=== PATIENT | female | born 1975 | race Caucasian/White ===

== ENCOUNTER → 2016-12-09 | Outpatient (CLI) | payer BC ==
[~2016-12-09] MED LIST: DICL-201 PO; MULT-506 PO; OMEP40CA PO; PRLSR20 PO
== END | disposition home or self-care (01) ==
LOC: C.PAPS 11:26
PROVIDERS: ATTEND Obstetrics & Gynecology
DX: Z01.419 Encounter for gynecological examination (general) (routine) without abnormal findings (principal)

== ENCOUNTER → 2017-01-01 | Outpatient (CLI) | payer BC ==
[~2017-01-01] MED LIST changes: -PRLSR20 PO
--- NOTE | 2017-01-01 13:05 | MAMMOGRAPHY REPORT ---
BILATERAL DIGITAL DIAGNOSTIC MAMMOGRAM TOMOSYNTHESIS WITH CAD AND TARGETED RIGHT ULTRASOUND: 7 CLINICAL HISTORY: 1 year follow-up of a benign-appearing circumscribed subcentimeter mass in the ante rior right breast. Annual bilateral screening mammogram. TECHNIQUE: Bilateral breast tomosynthesis in addition to standard 2D mammography was performed. Curre nt study was also evaluated with a Computer Aided Detection (CAD) system. COMPARISON: Comparison is made to exams dated: 07/03/2016 ultrasound, 07/03/2016 mammogram, 6 ultrasound, 01/30/2016 mammogram, and 01/19/2016 mammogram - [facility]. BREAST COMPOSITION: The tissue of both breasts is almost entirely fatty. FINDINGS: There is an oval circumscribed low density mass in the anterior retroareolar right breast m easuring 7.7 x 5.3 x 3.3 mm mammographically, previously 7.9 x 4.9 x 5.7 mm. No new suspicious mass, architectural distortion or suspicious calcifications are identified bilaterally. There are scatter ed benign round and rim calcifications in the breasts. Repeat targeted ultrasound was performed in the 12:00 periareolar right breast in the location of the previously observed benign-appearing isoechoic circumscribed mass. However, a mass is not currently seen in this location. IMPRESSION: ACR-BI-RADS CATEGORY 3: PROBABLY BENIGN, TARGETED ULTRASOUND ACR-BI-RADS CATEGORY 3: PRO BABLY BENIGN Stable bilateral mammograms, including stable appearance of a benign-appearing low-density oval circu mscribed mass in the anterior retroareolar right breast. Although this mass is not currently identif ied on ultrasound to confirm sonographic stability, given the mammographic stability for at least one year this most likely benign. Another 12 month follow-up bilateral diagnostic mammogram and possibl e repeat ultrasound is recommended to ensure at least 2 years of stability to confirm benignity. These results and recommendations were discussed with the patient at the time of the exam. Approximately 10% of breast cancers are not detected with mammography. A negative mammographic report should not delay biopsy if a clinically suggestive mass is present. Jeannie Kaplan M.D. ay/:01/01/2017 08:40:28 Test Driver: Lexie WARREN)(Eileen), [facility] letter sent: Follow Up Recommended 3 BI-RADS Code: ACR-BI-RADS Category 3: Probably Benign Ultrasound BI-RADS: ACR-BI-RADS Category 3: Pr obably Benign
== END | disposition home or self-care (01) ==
LOC: C.MAMM 08:08
PROVIDERS: ATTEND Obstetrics & Gynecology
DX: N63 Unspecified lump in breast (principal)

== ENCOUNTER → 2017-01-31 | Outpatient (CLI) | payer BC | END | disposition home or self-care (01) | LOC: C.LAB1850 14:24 | PROVIDERS: ATTEND Obstetrics & Gynecology | DX: Z12.73 Encounter for screening for malignant neoplasm of ovary (principal) ==

== ENCOUNTER → 2017-05-01 | Day surgery (SDC) | payer BC ==
[2017-04-23 08:02] VITALS: Ht 157.5 cm; Wt 127.3 kg
[~2017-05-01] VITALS: Ht 157.5 cm; Wt 127.3 kg
[~2017-05-01] MED LIST changes: -DICL-201 PO; +LIDOCAINE HCL 2% 2 ML VIAL (20MG/ML) ONE; -MULT-506 PO; -OMEP40CA PO; +ONDANSETRON INJ 2 MG/ML 2 ML VIAL IV PRN; +PRLSR20 PO; +PROPOFOL IV EMULSION 10 MG/ML 20 ML VIAL IV ONE
--- NOTE | 2017-05-01 09:54 | Endo History and Physical ---
History & Physical Date of Service: May 01, 2017. Chief Complaint: History of reflux and possible Mclean's esophagus Referring Physician: History of Present Illness 41-year-old female with a history of gastroesophageal reflux well-controlled on current medications. Prior biopsies from the distal esophagus several years ago were suspicious for intestinal metaplasia. The patient presents for follow- up screening today. Past Medical History Gastrointestinal Disorder, Reflux, Blood Dyscrasias, Gynecological Problems Past Surgical History Hx Cardiac Surgery: No Hx Internal Defibrillator: No Hx Pacemaker: No Hx Abdominal Surgery: Yes (ANILA, X 2) Hx of Implantable Prosthesis: No Hx Post-Op Nausea and Vomiting: No Hx Cancer Surgery: No Hx Thoracic Surgery: No Hx Orthopedic: No Hx Urinary Tract Surgery: No Family History Polyp Social History Smoking Status: Never Smoker Hx Substance Use: No Hx Alcohol Use: No Allergies Coded Allergies: Sulfa Antibiotics (Verified Allergy, Unknown, HIVES, ITCHING, HEART RACES , 04/23/17) Penicillins (Verified Adverse Reaction, Mild, SEVERE HEADACHE AND FEVER, 04/23/17) Current Medications Reported Home Medications Medications Dose Route/Sig Max Daily Dose Days Date Category Prilosec (Omeprazole) 20 Mg Capcr 20 Mg PO QAM 04/23/17 Reported Vital Signs Weight (Kilograms): 127.27 Height (Feet): 5 Height (Inches): 2 Date Time Temp Pulse Resp B/P (MAP) Pulse Ox O2 Delivery O2 Flow Rate FiO2 05/01/17 09:45 36.6 85 20 146/90 (108) 100 Room Air Physical Exam General Appearance: no apparent distress Respiratory/Chest: Auscultation: breath sounds normal Cardiovascular: Heart Auscultation: RRR Abdomen: Inspection & Palpation: soft Assessment and Plan Patient with a history of reflux and possible Mclean's esophagus. We are planning to do a upper endoscopy for reassessment of her distal esophagus to determine if she has Mclean's. We've discussed the risks to include bleeding, infection, perforation and pain.
--- NOTE | 2017-05-01 10:26 | Discharge Instructions ---
Endoscopy Patient Instructions Date / Procedure(s) Performed May 01, 2017. EGD Allergy Information Coded Allergies: Sulfa Antibiotics (Verified Allergy, Unknown, HIVES, ITCHING, HEART RACES , 04/23/17) Penicillins (Verified Adverse Reaction, Mild, SEVERE HEADACHE AND FEVER, 04/23/17) Discharge Date / Findings May 01, 2017. Small Hiatal hernia Irregular gastroesophageal junction Medication Instructions Reported Home Medications Medications Dose Route/Sig Max Daily Dose Days Date Category Prilosec (Omeprazole) 20 Mg Capcr 20 Mg PO QAM 04/23/17 Reported Provider Instructions Activity Restrictions - No exercising or heavy lifting for 24 hours. - Do not drink alcohol the day of the procedure. - Do not drive a car or operate machinery until the day after the procedure. - Do not make any important decisions or sign important papers in 24 hours after the procedure. Following Day: - Return to full activity which may include returning to work/school. Diet Start your diet with liquids and light foods (jello, soup, juice, toast). Then eat your usual diet if not nauseated. Treatment For Common After Affects For mild abdominal pain, bloating, or excessive gas: - Rest - Eat lightly - Lie on right side Follow-Up Information Follow-up with Dr Lima as scheduled If pathology shows Barretts Esophagus will repeat EGD in 3 years Anesthesia Information What You Should Know You have had a procedure that required some medicine to reduce anxiety and discomfort. This treatment is called moderate sedation. After receiving the treatment, you may be sleepy, but you will be able to breathe on your own. The effects of the treatment may last for several hours. Follow these instructions along with Activity/Diet recommendations noted above: * Do NOT do anything where dizziness or clumsiness would be dangerous. * Rest quietly at home today, then you can be up and about tomorrow. * Have a responsible person stay with you the rest of today. * You may have had an I.V. today. If so, you may take the dressing off later today. Recommendations Call your doctor if: * Trouble breathing * Continuous vomiting for more than 24 hours * Temperature above 101 degrees * Severe abdominal pain or bloating * Pain not relieved by pain medicine ordered * There is increased drainage or redness from any incision * A large amount of rectal bleeding greater than 2-3 tablespoons. (If you had a polyp/s removed or have hemorrhoids, a small amount of blood - from the rectum is to be expected.) * You have any unanswered questions or concerns. IN THE EVENT OF A SERIOUS EMERGENCY, GO TO THE NEAREST EMERGENCY ROOM Your discharge instructions were prepared by provider Isaías Meek. Patient Instructions Signature Page Aiyana Palacios Patient (or Guardian) Signature/Date: I have read and understand the instructions given to me by my caregivers. Caregiver/RN/Doctor Signature/Date: The above-named patient and/or guardian has received patient instructions on this date. + Original Patient Signature Page (only) stays with chart. Please make copy for patient.
--- NOTE | 2017-05-01 10:33 | GI REPORT ---
Procedure Date: 05/01/2017 10:08 AM Procedure: Upper GI endoscopy Indications: Heartburn, Suspected Mclean's esophagus Medicines: Monitored Anesthesia Care Complications: No immediate complications. Estimated blood loss: Minimal. Estimated Blood Loss: Estimated blood loss was minimal. Procedure: Pre-Anesthesia Assessment: - Prior to the procedure, a History and Physical was performed, and patient medications, allergies and sensitivities were reviewed. The patient's tolerance of previous anesthesia was reviewed. - The risks and benefits of the procedure and the sedation options and risks were discussed with the patient. All questions were answered and informed consent was obtained. - Patient identification and proposed procedure were verified prior to the procedure by the physician, the nurse and the securities dealer. The procedure was verified in the procedure room. - Pre-procedure physical examination revealed no contraindications to sedation. - ASA Grade Assessment: II - A patient with mild systemic disease. - After reviewing the risks and benefits, the patient was deemed in satisfactory condition to undergo the procedure. - The anesthesia plan was to use monitored anesthesia care (MAC). - Immediately prior to administration of medications, the patient was re-assessed for adequacy to receive sedatives. - The heart rate, respiratory rate, oxygen saturations, blood pressure, adequacy of pulmonary ventilation, and response to care were monitored throughout the procedure. - The physical status of the patient was re-assessed after the procedure. After obtaining informed consent, the endoscope was passed under direct vision. Throughout the procedure, the patient's blood pressure, pulse, and oxygen saturations were monitored continuously. The scope was introduced through the mouth, and advanced to the third part of duodenum. The upper GI endoscopy was accomplished without difficulty. The patient tolerated the procedure well. Findings: The examined esophagus was normal. The Z-line was irregular and was found 33 cm from the incisors. Biopsies were taken with a cold forceps for histology. Estimated blood loss was minimal. A medium-sized hiatus hernia was found. The proximal extent of the gastric folds (end of tubular esophagus) was 34 cm from the incisors. The hiatal narrowing was 36 cm from the incisors. The Z-line was 33 cm from the incisors. The entire examined stomach was normal. The examined duodenum was normal. Impression: - Z-line irregular, 33 cm from the incisors. Biopsied. - Medium-sized hiatus hernia. - Normal stomach. - Normal examined duodenum. Recommendation: - Discharge patient to home (ambulatory). - Advance diet as tolerated today. - Await pathology results. - Repeat the upper endoscopy in 3 years for surveillance based on pathology results (if consistent Barretts Esophagus). Isaías Meek D.O. Isaías Meek, DO 05/01/2017 10:32:40 AM This report has been signed electronically. Note Initiated On: 05/01/2017 10:08 AM I attest to the content of the Intraoperative Record and orders documented therein, exceptions below
[2017-05-01 10:53] VITALS: BP 123/82; PULSE 63; O2SAT 98
--- NOTE | 2017-05-01 12:30 | Anesthesiology Progress Note ---
Anesthesia Post Op Note Date & Time May 01, 2017 at 12:30 Vital Signs Pain Intensity: 0 Vital Signs Past 12 Hours Date Time Temp Pulse Resp B/P (MAP) Pulse Ox O2 Delivery O2 Flow Rate FiO2 05/01/17 10:53 63 20 123/82 (96) 98 Room Air 05/01/17 10:39 70 18 126/64 (84) 96 Room Air 05/01/17 10:25 87 16 107/66 (80) 95 Room Air 05/01/17 09:45 36.6 85 20 146/90 (108) 100 Room Air Notes Mental Status: alert / awake / arousable, participated in evaluation Pt Amnestic to Procedure: Yes Nausea / Vomiting: adequately controlled Pain: adequately controlled Airway Patency, RR, SpO2: stable & adequate BP & HR: stable & adequate Hydration State: stable & adequate Anesthetic Complications: no major complications apparent
== END | disposition home or self-care (01) ==
LOC: C.GI 09:19
PROVIDERS: ATTEND Internal Medicine Gastroenterology
DX: R12 Heartburn (principal); K22.8 Other specified diseases of esophagus; K44.9 Diaphragmatic hernia without obstruction or gangrene; K21.9 Gastro-esophageal reflux disease without esophagitis; E66.01 Morbid (severe) obesity due to excess calories; Z68.43 Body mass index [BMI] 50.0-59.9, adult; Z90.49 Acquired absence of other specified parts of digestive tract; Z88.2 Allergy status to sulfonamides; Z88.0 Allergy status to penicillin; Z83.71 Family history of colonic polyps

== ENCOUNTER 2023-08-02 20:34 | Inpatient (IN) ==
[2023-08-02] MEDS ORDERED: ONDANSETRON INJ 2 MG/ML 2 ML VIAL IV STA (20:51)
[2023-08-02] MEDS ORDERED: HYDROmorphone INJ 0.5 MG/0.5 ML SYR IV STA (20:51)
[2023-08-02] MEDS ORDERED: SODIUM CHLORIDE 0.9% 1,000 ML IV STA (20:51)
--- NOTE | 2023-08-02 21:01 | Emergency Department Note ---
Impression & Plan Choledocholithiasis, Hx of cholecystectomy ED Provider Note CHIEF COMPLAINT: Abdominal pain, vomiting HISTORY OF PRESENT ILLNESS: This 47-year-old female patient past medical history of GERD, Mclean's esophagus, morbid obesity, presents to the emergency department with complaints of gradual onset of epigastric abdominal pain today. Patient states it was radiating down towards the bilateral upper quadrants but now seems to be more localized in the right upper quadrant. She had her gallbladder out about 13 years ago, but she states it feels very similar. Patient states she had beef vegetable soup and a piece of cake this evening. She does not recall having anything greasy or spicy today. She denies fevers, diarrhea and blood in her emesis. REVIEW OF SYSTEMS: A review of systems was performed with positives and pertinent negatives listed in the history of present illness. 10 systems were reviewed and are otherwise negative. ALLERGIES: see below MEDICATIONS: see below PMH: see below SOCIAL HISTORY: see below DDx: Retained biliary stone, pancreatitis, gastric ulcer, bowel obstruction, diverticulitis, kidney stone COVID UTI/pyelonephritis among others PHYSICAL EXAM: Vital signs reviewed. General: Well-appearing 47-year-old female, in some discomfort. HEENT: No scleral icterus, PERRLA, neck supple. Moist mucous membranes. Cardiovascular: Regular rate and rhythm, no extra sounds. Pulmonary: Clear to auscultation bilaterally, normal work of breathing. Abdomen: Soft, obese, tender to the right upper quadrant, nondistended, positive bowel sounds. Musculoskeletal: Atraumatic, no peripheral edema. Neurologic: Patient awake alert and oriented x 3, speech is clear Skin: Warm, dry, no rash EMERGENCY DEPARTMENT COURSE/MDM: This patient was evaluated and appeared to be in some discomfort. IV access was obtained and laboratory work was drawn. The patient was medicated with IV Dilaudid and Zofran. Laboratory work reveals a slight leukocytosis and AST/ALT. I did discuss the case with Dr. Monae of gastroenterology. He states he will contact the service providers to perform this procedure. Patient was covered with 2 g of IV Mefoxin. She was informed of the findings and plan and agreed. Patient was feeling improved after the medications. Dr. Ruelas of the hospitalist service will evaluate the patient for admission and further management. MONITORING: An order for cardiac monitoring was placed and the patient is noted to be in a sinus tachycardia at 105 beats per minute. RADIOLOGY: CT imaging of the abdomen pelvis per radiology reveals a small stone in the distal common bile duct. DISPOSITION: admit Past Med/Surg History Medical History GERD (gastroesophageal reflux disease) Hx gestational diabetes Temporomandibular joint disorder NO LOCKING Irregular heart beat NO CARDS (ECHO DONE IN 2013 FOR PVCS- NO SIGNIFICANT ISSUES NOTED ON ECHO) History of COVID-19 04/10/21 (BODY ACHES AND FATIGUE, MILD COUGH, RUNNY NOSE) STILL HAVING HAIR LOSS Pelvic pain Barretts esophagus Menorrhagia Surgical History Family history of reaction to anesthesia FATHER>HARD TIME WAKING UP History of anesthesia reaction WHEN RECOVERING>BODY SHAKES ALL OVER History of esophagogastroduodenoscopy (EGD) History of colonoscopy S/P section X 2 Hx of cholecystectomy Status post tubal ligation Family History Grandfather (Paternal) Heart disease Grandmother (Paternal) Ovarian cancer Diabetes Father Colonic polyp Borderline diabetes Father Breast cancer Denies family history of Colorectal cancer Social History Smoking Status: Never smoker Second Hand Exposure: No; Do You Dip or Chew Tobacco: No; Hx Alcohol Use: Yes Alcohol type: wine Preferred Language: Djib[place]ian [id number] Analyst Required: No Beliefs That Will Affect Care: None Current Living Situation: Family Feels Safe at Home: Yes Assistive Devices: None Allergies Allergies Allergy/AdvReac Type Severity Reaction Status Date / Time Sulfa (Sulfonamide Allergy Severe HIVES, Verified 07/30/23 08:21 Antibiotics) ITCHING, HEART RACES Penicillins Allergy Intermediate SEVERE Verified 07/30/23 08:21 HEADACHE AND FEVER sulfamethoxazole Allergy Mild rash Verified 07/30/23 08:21 [From Bactrim] trimethoprim [From Bactrim] Allergy Mild rash Verified 07/30/23 08:21 amoxicillin AdvReac Intermediate Headache Verified 07/30/23 08:21 Home Meds Home Medications Medication Instructions Recorded Confirmed omeprazole 20 mg capsule,delayed 20 mg PO QAM 10/05/19 08/03/23 release multivitamin 1 tab PO QAM 06/13/21 08/03/23 multivitamin,min-ferrous fumarate 1 tab PO QAM 09/17/21 08/03/23 3.3 mg-folic 25 mcg-herb tablet (Hair, Skin and Nails Advanced) semaglutide (weight loss) 2.4 2.4 mg subcut WK weight loss 08/03/23 08/03/23 mg/0.75 mL subcutaneous pen injector (Lam) Previous Rx's Medication Instructions Recorded cyclobenzaprine 10 mg tablet 10 mg PO TID PRN muscle spasm #20 08/04/22 tabs nystatin 100,000 unit/gram topical 1 applic topical TID #30 grams 07/30/23 cream Results & Data (ED) Vital Signs Vital Signs - 24 hr 08/02/23 20:40 08/02/23 20:51 08/02/23 21:22 Temperature 36.4 C L Temperature Source Temporal Artery Scan Pulse Rate 105 H 86 Pulse Rate from SpO2 Sensor Respiratory Rate 18 Blood Pressure 160/105 H Blood Pressure Mean 123 Blood Pressure Position Sitting Pulse Oximetry 99 Oxygen Delivery Method Room Air Room Air Oxygen Flow Rate Sepsis Recent Fever Within 48 Hours No Sepsis New/Unexplained Change in Mental Status N/A Sepsis Action Taken by Nursing No Action Required 08/02/23 21:23 08/02/23 22:19 08/02/23 23:17 Temperature Temperature Source Pulse Rate 84 93 H 94 H Pulse Rate from SpO2 Sensor 89 97 H Respiratory Rate 20 18 18 Blood Pressure 152/81 H 114/61 Blood Pressure Mean 104 78 Blood Pressure Position Pulse Oximetry 94 98 96 Oxygen Delivery Method Room Air Nasal Cannula Oxygen Flow Rate 2 Sepsis Recent Fever Within 48 Hours Sepsis New/Unexplained Change in Mental Status Sepsis Action Taken by Nursing 08/03/23 00:00 Temperature Temperature Source Pulse Rate 73 Pulse Rate from SpO2 Sensor Respiratory Rate 16 Blood Pressure 116/69 Blood Pressure Mean 84 Blood Pressure Position Pulse Oximetry 100 Oxygen Delivery Method Oxygen Flow Rate Sepsis Recent Fever Within 48 Hours Sepsis New/Unexplained Change in Mental Status Sepsis Action Taken by Custodial Medications Current Medication List: was personally reviewed by me Laboratory Data Attestation: I reviewed the patient's lab results. 08/02/23 21:03 08/02/23 21:03 Lab Results 08/02/23 08/02/23 Range/Units 21:03 22:03 WBC 10.65 (4.8-10.8) K/ul RBC 4.77 (4.20-5.40) M/uL Hgb 14.3 (12.0-16.0) g/dl Hct 41.8 (37.0-47.0) % MCV 87.6 (80.0-100.0) fL MCH 30.0 (25.0-34.0) pg MCHC 34.2 (32.0-36.0) g/dL RDW Std Deviation 40.0 (36.4-46.3) fL RDW Coeff of Shonda 12.6 (11.5-14.5) % Plt Count 296 (130-400) K/uL MPV 9.2 L (9.4-12.4) fL Sodium 136 (136-145) mmol/L Potassium 3.6 (3.5-5.1) mmol/L Chloride 108 H (98-107) mmol/L Carbon Dioxide 24 (21-32) mmol/L Anion Gap 4 (3-11) BUN 11 (6-23) mg/dl Creatinine 0.47 L (0.6-1.2) mg/dl Est Cr Clr Drug Dosing 173.5 ml/min Est GFR ( Amer) 135.4 ml/min Est GFR (Non-Af Amer) 116.8 ml/min BUN/Creatinine Ratio 23.4 H (10-20) Glucose 115 H (70-99(Fasting)) mg/dl Calcium 8.8 (8.6-10.3) mg/dl Magnesium 1.9 (1.7-2.4) mg/dl Total Bilirubin 1.2 H (0.2-1.0) mg/dl AST 347 H (13-39) U/L ALT 313 H (7-52) U/L Alkaline Phosphatase 81 (34-104) U/L Total Protein 6.6 (6.0-8.3) gm/dl Albumin 4.1 (3.4-5.0) gm/dl Globulin 2.5 (2.5-4.0) gm/dl Albumin/Globulin Ratio 1.6 (0.9-2) Lipase 35 (11-82) U/L Urine Color Yellow Urine Appearance Slightly Cloudy (Clear) Urine pH 7.5 (4.5-7.5) Ur Specific [place] 1.020 (1.000-1.030) Urine Protein Negative (Negative) Urine Glucose (UA) Negative (Negative) Urine Ketones Negative (Negative) Urine Blood Trace-intact H (Negative) Urine Nitrite Negative (Negative) Urine Bilirubin Negative (Negative) Urine Urobilinogen Negative (Negative) Ur Leukocyte Esterase Negative (Negative) Urine RBC 0-4 (0-4) /hpf Urine WBC 0-5 (0-5) /hpf Ur Epithelial Cells 0-5 (0-5) /lpf Amorphous Sediment Present A (None Prsent) Urine Bacteria 1+ H (Negative) Administered Medications Sodium Chloride (Nss) 1,000 mls @ 75 mls/hr IV .[id number] ONE Stop: 08/03/23 13:02 Last Admin: 08/03/23 00:31 Dose: 75 mls/hr Documented By: MARILOU Discontinued Medications Hydromorphone HCl (Hydromorphone Inj 0.5 Mg/0.5 Ml Syr) 0.5 mg IV NOW STA Stop: 08/02/23 20:52 Last Admin: 08/02/23 21:04 Dose: 0.5 mg Documented By: MARILOU Sodium Chloride (Nss) 1,000 mls @ 999 mls/hr IV .Q1H1M STA Stop: 08/02/23 21:51 Last Infusion: 08/02/23 22:46 Dose: Infused Documented By: Admin: 08/02/23 21:04 Dose: 999 mls/hr Documented By: MARILOU Cefoxitin Sodium (Mefoxin) 2,000 mg in 60 mls @ 100 mls/hr IV NOW STA Stop: 08/02/23 23:56 Last Infusion: 08/03/23 00:15 Dose: Infused Documented By: Admin: 08/02/23 23:39 Dose: 100 mls/hr Documented By: MARILOU Ioversol (Optiray 320 500ml) 87 ml IV ONCE ONE Stop: 08/02/23 22:11 Last Admin: 08/02/23 22:10 Dose: 87 ml Documented By: GRACE Ondansetron HCl (Ondansetron Inj 2 Mg/Ml 2 Ml Vial) 4 mg IV NOW STA Stop: 08/02/23 20:52 Last Admin: 08/02/23 21:04 Dose: 4 mg Documented By: MARILOU Imaging Data Radiologist's Impression: Abdomen/Pelvis CT 08/02/23 20:51 Exam(s): CT ABDOMEN + PELVIS With Contrast IV Amt: 87 ml optiray 320 EXAM: CT Abdomen and Pelvis With Intravenous Contrast CLINICAL HISTORY: Reason for exam: RUQ pain s/p rasheed. TECHNIQUE: Axial computed tomography images of the abdomen and pelvis with intravenous contrast. CTDI is 28.14 mGy and DLP is 1316.89 mGy-cm. Automated exposure control was utilized for the study. A dose lowering technique was utilized adhering to the principles of ALARA. CONTRAST: Patient received 87 ml optiray 320 of IV contrast COMPARISON: None. FINDINGS: Lung bases: Unremarkable. No mass. No consolidation. ABDOMEN: Liver: Unremarkable. No mass. Gallbladder and bile ducts: Status post cholecystectomy with no intrahepatic biliary distention. There is a tiny punctate stone in the distal aspect of the common bile duct measuring 5 mm. The common bile duct and above this level measures approximately 7.6 mm. Pancreas: Unremarkable. No mass. No ductal dilation. Spleen: Unremarkable. No splenomegaly. Adrenals: Unremarkable. No mass. Kidneys and ureters: Unremarkable. No solid mass. No hydronephrosis. Stomach and bowel: Unremarkable. No obstruction. No mucosal thickening. PELVIS: Appendix: No findings to suggest acute appendicitis. Bladder: Unremarkable. No mass. Reproductive: Nonvisualized uterus consistent with prior hysterectomy. ABDOMEN and PELVIS: Intraperitoneal space: Unremarkable. No free air. No significant fluid collection. Bones/joints: Multilevel degenerative disease of the spine, more severe at L5-S1. No acute fracture or spondylolisthesis. Mild degenerative disease of bilateral hips and SI joints. No dislocation. Soft tissues: Small fat-containing infraumbilical hernia. Vasculature: Unremarkable. No abdominal aortic aneurysm. Lymph nodes: Unremarkable. No enlarged lymph nodes. IMPRESSION: 1. Status post cholecystectomy with tiny stone in the distal aspect of the common bile duct with mild extrahepatic biliary distention. If indicated, this can be further assessed with MRCP/ERCP. Remainder of abdominal viscera are unremarkable. 2. No acute appendicitis or bowel obstruction. Electronically signed by: Kathie Leos MD 08/02/23 23:18 PM Discharge Plan Visit Data Chief Complaint: Abdominal Pain Stated Complaint: ABD PAIN ED Provider: Gianna Perez Discharge Problem: Choledocholithiasis, Hx of cholecystectomy Forms Stand Alone Forms: My [facility] Prescriptions Prescriptions: No Action nystatin 100,000 unit/gram cream 1 applic topical TID Qty: 30 2RF Rx Instructions: use tid for 7-10 days to affected area omeprazole 20 mg capsule,delayed release(DR/EC) 20 mg PO QAM cyclobenzaprine 10 mg tablet 10 mg PO TID PRN (Reason: muscle spasm) Qty: 20 0RF Wegovy 2.4 mg/0.75 mL pen injector 2.4 mg SUBCUT WK Rx Instructions: SQ once a week. Pt takes every friday. multivitamin Tablet 1 tab PO QAM Hair, Skin and Nails Advanced 3.3 mg iron-25 mcg Tablet 1 tab PO QAM Referrals Referrals: Daniel Lima MD [Primary Care Provider] -
[2023-08-02 21:35] LABS: Hematocrit (blood only) 41.8 % (37.0-47.0); Hemoglobin 14.3 g/dl (12.0-16.0); Mean Corpuscular Hgb Conc 34.2 g/dL (32.0-36.0); Mean Corpuscular Volume 87.6 fL (80.0-100.0); Mean Platelet Volume 9.2 fL (9.4-12.4); Platelet Count 296 K/uL (130-400); RDW Coefficient of Variation 12.6 % (11.5-14.5); Red Blood Count 4.77 M/uL (4.20-5.40); White Blood Count 10.65 K/ul (4.8-10.8)
[2023-08-02 21:51] LABS: Albumin Globulin Ratio 1.6 (0.9-2); Albumin Level 4.1 gm/dl (3.4-5.0); BUN Creatinine Ratio 23.4 (10-20); Bilirubin,Total 1.2 mg/dl (0.2-1.0); Calcium 8.8 mg/dl (8.6-10.3); Creatinine Clr Calc Pharmacy 173.5 ml/min; Est GFR (African American) 135.4 ml/min; Est GFR (Non-African American) 116.8 ml/min; Globulin 2.5 gm/dl (2.5-4.0); Potassium 3.6 mmol/L (3.5-5.1); Total Protein 6.6 gm/dl (6.0-8.3)
[2023-08-02] MEDS ORDERED: OPTIRAY 320 500ml IV ONE (22:10)
[2023-08-02 22:30] LABS: Appearance Urine Slightly Cloudy (Clear); Bilirubin Urine Negative (Negative); Blood Urine Trace-intact (Negative); Color Urine Yellow; Glucose Urine UA Negative (Negative); Ketones Urine Negative (Negative); Leukocyte Esterase Urine Negative (Negative); Nitrite Urine Negative (Negative); Protein Urine Negative (Negative); Urobilinogen Urine Negative (Negative); pH Urine 7.5 (4.5-7.5)
[2023-08-02] MEDS ORDERED: HYDROmorphone INJ 0.5 MG/0.5 ML SYR IV PRN (22:49)
[2023-08-02 22:50] LABS: Amorphous Sediment Urine Present (None Prsent); Bacteria Urine 1+ (Negative); Epithelial Cell Urine 0-5 /lpf (0-5); RBC Urine 0-4 /hpf (0-4); WBC Urine 0-5 /hpf (0-5)
--- NOTE | 2023-08-02 23:19 | CT Scan Report ---
Exam(s): CT ABDOMEN + PELVIS With Contrast IV Amt: 87 ml optiray 320 EXAM: CT Abdomen and Pelvis With Intravenous Contrast CLINICAL HISTORY: Reason for exam: RUQ pain s/p rasheed. TECHNIQUE: Axial computed tomography images of the abdomen and pelvis with intravenous contrast. CTDI is 28.14 mGy and DLP is 1316.89 mGy-cm. Automated exposure control was utilized for the study. A dose lowering technique was utilized adhering to the principles of ALARA. CONTRAST: Patient received 87 ml optiray 320 of IV contrast COMPARISON: None. FINDINGS: Lung bases: Unremarkable. No mass. No consolidation. ABDOMEN: Liver: Unremarkable. No mass. Gallbladder and bile ducts: Status post cholecystectomy with no intrahepatic biliary distention. There is a tiny punctate stone in the distal aspect of the common bile duct measuring 5 mm. The common bile duct and above this level measures approximately 7.6 mm. Pancreas: Unremarkable. No mass. No ductal dilation. Spleen: Unremarkable. No splenomegaly. Adrenals: Unremarkable. No mass. Kidneys and ureters: Unremarkable. No solid mass. No hydronephrosis. Stomach and bowel: Unremarkable. No obstruction. No mucosal thickening. PELVIS: Appendix: No findings to suggest acute appendicitis. Bladder: Unremarkable. No mass. Reproductive: Nonvisualized uterus consistent with prior hysterectomy. ABDOMEN and PELVIS: Intraperitoneal space: Unremarkable. No free air. No significant fluid collection. Bones/joints: Multilevel degenerative disease of the spine, more severe at L5-S1. No acute fracture or spondylolisthesis. Mild degenerative disease of bilateral hips and SI joints. No dislocation. Soft tissues: Small fat-containing infraumbilical hernia. Vasculature: Unremarkable. No abdominal aortic aneurysm. Lymph nodes: Unremarkable. No enlarged lymph nodes. IMPRESSION: 1. Status post cholecystectomy with tiny stone in the distal aspect of the common bile duct with mild extrahepatic biliary distention. If indicated, this can be further assessed with MRCP/ERCP. Remainder of abdominal viscera are unremarkable. 2. No acute appendicitis or bowel obstruction. Electronically signed by: Kathie Leos MD 08/02/23 23:18 PM
[2023-08-02] MEDS ORDERED: cefOXitin 2,000 MG/60 ML BAG IV STA (23:21)
[2023-08-02] MEDS ORDERED: SODIUM CHLORIDE 0.9% 1,000 ML IV ONE (23:43)
[2023-08-03 00:01] LABS: Magnesium 1.9 mg/dl (1.7-2.4)
--- NOTE | 2023-08-03 00:25 | History & Physical Report ---
Date of Service August 03, 2023 Assessment & Plan (1) Choledocholithiasis: Plan: Causing biliary tract obstruction No sepsis for now Situational hypertension, BP currently improved Hyperglycemia, rule out DM, history of GDM History GERD on PPI Skinfold dermatitis responding to outpatient topical nystatin Rx from bulk gas specialist [facility] Bowel rest Analgesia GI consult re: biliary tract obstruction/choledocholithiasis ER provider already in touch with Dr. Monae. N.p.o. in anticipation of procedure in a.m. Check hemoglobin A1c DVT prophylaxis. SCDs Re: Possible procedure Full code Patient requesting updates providers. Mr. Misael Palacios, contact #[phone]. Text document was generated using [employer] voice recognition software. It may contain grammatical or spelling errors. Kindly contact undersigned for clarification of any documentation item in question. History of Present Illness Chief Complaint: Abdominal pain Primary Care Provider: Daniel Lima MD History obtained from patient, family, and records. Medical history significant for GERD, NAFLD, gestational DM, PCOS, morbid obesity on [place]. Patient experience achy epigastric pain after lunchtime today which progressively worsened. Later followed by bilious emesis. No constipation/diarrhea. No fever, no chills, no chest pain, no SOB. No headache. SBP 200s upon arrival at the ER. SBP currently 110s. IV cefoxitin administered at the ER. Medical History as above Topical nystatin recently prescribed by bulk gas specialist for abdominal skin fold dermatitis following recent outpatient visit Surgical History : BTL, hysterectomy, section, cholecystectomy Family History : Breast cancer, DM, ovarian cancer Personal/Social history : Non-smoker, rare EtOH intake, [employer] employee Allergies Allergy/AdvReac Type Severity Reaction Status Date / Time Sulfa (Sulfonamide Allergy Severe HIVES, Verified 07/30/23 08:21 Antibiotics) ITCHING, HEART RACES Penicillins Allergy Intermediate SEVERE Verified 07/30/23 08:21 HEADACHE AND FEVER sulfamethoxazole Allergy Mild rash Verified 07/30/23 08:21 [From Bactrim] trimethoprim [From Bactrim] Allergy Mild rash Verified 07/30/23 08:21 amoxicillin AdvReac Intermediate Headache Verified 07/30/23 08:21 Home Medications Medication Instructions Recorded Confirmed Type omeprazole 20 mg capsule,delayed 20 mg PO QAM 10/05/19 08/03/23 History release multivitamin 1 tab PO QAM 06/13/21 08/03/23 History multivitamin,min-ferrous fumarate 1 tab PO QAM 09/17/21 08/03/23 History 3.3 mg-folic 25 mcg-herb tablet (Hair, Skin and Nails Advanced) cyclobenzaprine 10 mg tablet 10 mg PO TID PRN muscle spasm #20 08/04/22 08/03/23 Rx tabs nystatin 100,000 unit/gram topical 1 applic topical TID #30 grams 07/30/23 08/03/23 Rx cream semaglutide (weight loss) 2.4 2.4 mg subcut WK weight loss 08/03/23 08/03/23 History mg/0.75 mL subcutaneous pen injector ([employer]) Past Med/Surg History Medical History GERD (gastroesophageal reflux disease) Hx gestational diabetes Temporomandibular joint disorder NO LOCKING Irregular heart beat NO CARDS (ECHO DONE IN 2013 FOR PVCS- NO SIGNIFICANT ISSUES NOTED ON ECHO) History of COVID-19 04/10/21 (BODY ACHES AND FATIGUE, MILD COUGH, RUNNY NOSE) STILL HAVING HAIR LOSS Pelvic pain Barretts esophagus Menorrhagia Surgical History Family history of reaction to anesthesia FATHER>HARD TIME WAKING UP History of anesthesia reaction WHEN RECOVERING>BODY SHAKES ALL OVER History of esophagogastroduodenoscopy (EGD) History of colonoscopy S/P section X 2 Hx of cholecystectomy Status post tubal ligation Family History Grandfather (Paternal) Heart disease Grandmother (Paternal) Ovarian cancer Diabetes Father Colonic polyp Borderline diabetes Father Breast cancer Denies family history of Colorectal cancer Social History Smoking Status: Never smoker Second Hand Exposure: No; Do You Dip or Chew Tobacco: No; Hx Alcohol Use: No Hx Substance Use: No Preferred Language: Hungarian Cell Tender Required: No Beliefs That Will Affect Care: None Current Living Situation: Spouse Feels Safe at Home: Yes Safety Concerns: Feels Safe At This Time Assistive Devices: CPAP Review of Systems Review of Systems: As per HPI, all other systems reviewed and negative Physical Exam Physical Exam: GENERAL: Comfortable, morbidly obese, no respiratory distress SKIN: Normal color, warm HEENT: [place] palpebral conjunctivae, no ptosis, dry buccal mucosa NECK : Supple, short neck, no tenderness CHEST : Decreased breath sounds, no tenderness HEART : RRR, no obvious murmurs ABDOMEN: Some distention, minimal epigastric tenderness EXTREMITIES : Minimal LE swelling, no LE tenderness, no other conspicuous deformities noted NEUROLOGIC : Coherent, no facial asymmetry, no other gross focality Results & Data Results & Data Vital Signs (Past 12 Hours) Vital Signs Temp Pulse Resp BP Pulse Ox O2 Del Method O2 Flow Rate 08/03/23 00:00 73 16 116/69 100 08/02/23 23:17 94 H 18 114/61 96 08/02/23 22:19 93 H 18 152/81 H 98 Nasal Cannula 2 08/02/23 21:23 84 20 94 Room Air 08/02/23 21:22 86 08/02/23 20:51 Room Air 08/02/23 20:40 36.4 C L 105 H 18 160/105 H 99 Room Air Laboratory Results Laboratory Results WBC 10.65 K/ul (4.8-10.8) 08/02/23 21:03 RBC 4.77 M/uL (4.20-5.40) 08/02/23 21:03 Hgb 14.3 g/dl (12.0-16.0) 08/02/23 21:03 Hct 41.8 % (37.0-47.0) 08/02/23 21:03 MCV 87.6 fL (80.0-100.0) 08/02/23 21:03 MCH 30.0 pg (25.0-34.0) 08/02/23 21:03 MCHC 34.2 g/dL (32.0-36.0) 08/02/23 21:03 RDW Std Deviation 40.0 fL (36.4-46.3) 08/02/23 21:03 RDW Coeff of Shonda 12.6 % (11.5-14.5) 08/02/23 21:03 Plt Count 296 K/uL (130-400) 08/02/23 21:03 MPV 9.2 fL (9.4-12.4) L 01/27/24 21:03 Sodium 136 mmol/L (136-145) 08/02/23 21:03 Potassium 3.6 mmol/L (3.5-5.1) 08/02/23 21:03 Chloride 108 mmol/L (98-107) H 08/02/23 21:03 Carbon Dioxide 24 mmol/L (21-32) 08/02/23 21:03 Anion Gap 4 (3-11) 08/02/23 21:03 BUN 11 mg/dl (6-23) 08/02/23 21:03 Creatinine 0.47 mg/dl (0.6-1.2) L 08/02/23 21:03 Est Cr Clr Drug Dosing 173.5 ml/min 08/02/23 21:03 Est GFR ( Amer) 135.4 ml/min 08/02/23 21:03 Est GFR (Non-Af Amer) 116.8 ml/min 08/02/23 21:03 BUN/Creatinine Ratio 23.4 (10-20) H 08/02/23 21:03 Glucose 115 mg/dl (70-99(Fasting)) H 08/02/23 21:03 Calcium 8.8 mg/dl (8.6-10.3) 08/02/23 21:03 Magnesium 1.9 mg/dl (1.7-2.4) 08/02/23 21:03 Total Bilirubin 1.2 mg/dl (0.2-1.0) H 08/02/23 21:03 AST 347 U/L (13-39) H 08/02/23 21:03 ALT 313 U/L (7-52) H 08/02/23 21:03 Alkaline Phosphatase 81 U/L (34-104) 08/02/23 21:03 Total Protein 6.6 gm/dl (6.0-8.3) 08/02/23 21:03 Albumin 4.1 gm/dl (3.4-5.0) 08/02/23 21:03 Globulin 2.5 gm/dl (2.5-4.0) 08/02/23 21:03 Albumin/Globulin Ratio 1.6 (0.9-2) 08/02/23 21:03 Lipase 35 U/L (11-82) 08/02/23 21:03 Urine Color Yellow 08/02/23 22:03 Urine Appearance Slightly Cloudy (Clear) 08/02/23 22:03 Urine pH 7.5 (4.5-7.5) 08/02/23 22:03 Ur Specific [place] 1.020 (1.000-1.030) 08/02/23 22:03 Urine Protein Negative (Negative) 08/02/23 22:03 Urine Glucose (UA) Negative (Negative) 08/02/23 22:03 Urine Ketones Negative (Negative) 08/02/23 22:03 Urine Blood Trace-intact (Negative) H 08/02/23 22:03 Urine Nitrite Negative (Negative) 08/02/23 22: Urine Bilirubin Negative (Negative) 08/02/23 22: Urine Urobilinogen Negative (Negative) 08/02/23 22:03 Ur Leukocyte Esterase Negative (Negative) 08/02/23 22:03 Urine RBC 0-4 /hpf (0-4) 08/02/23 22:03 Urine WBC 0-5 /hpf (0-5) 08/02/23 22:03 Ur Epithelial Cells 0-5 /lpf (0-5) 08/02/23 22:03 Amorphous Sediment Present (None Prsent) A 08/02/23 22: Urine Bacteria 1+ (Negative) H 08/02/23 22:03 Impressions Abdomen/Pelvis CT 08/02/23 20:51 Exam(s): CT ABDOMEN + PELVIS With Contrast IV Amt: 87 ml optiray 320 EXAM: CT Abdomen and Pelvis With Intravenous Contrast CLINICAL HISTORY: Reason for exam: RUQ pain s/p rasheed. TECHNIQUE: Axial computed tomography images of the abdomen and pelvis with intravenous contrast. CTDI is 28.14 mGy and DLP is 1316.89 mGy-cm. Automated exposure control was utilized for the study. A dose lowering technique was utilized adhering to the principles of ALARA. CONTRAST: Patient received 87 ml optiray 320 of IV contrast COMPARISON: None. FINDINGS: Lung bases: Unremarkable. No mass. No consolidation. ABDOMEN: Liver: Unremarkable. No mass. Gallbladder and bile ducts: Status post cholecystectomy with no intrahepatic biliary distention. There is a tiny punctate stone in the distal aspect of the common bile duct measuring 5 mm. The common bile duct and above this level measures approximately 7.6 mm. Pancreas: Unremarkable. No mass. No ductal dilation. Spleen: Unremarkable. No splenomegaly. Adrenals: Unremarkable. No mass. Kidneys and ureters: Unremarkable. No solid mass. No hydronephrosis. Stomach and bowel: Unremarkable. No obstruction. No mucosal thickening. PELVIS: Appendix: No findings to suggest acute appendicitis. Bladder: Unremarkable. No mass. Reproductive: Nonvisualized uterus consistent with prior hysterectomy. ABDOMEN and PELVIS: Intraperitoneal space: Unremarkable. No free air. No significant fluid collection. Bones/joints: Multilevel degenerative disease of the spine, more severe at L5-S1. No acute fracture or spondylolisthesis. Mild degenerative disease of bilateral hips and SI joints. No dislocation. Soft tissues: Small fat-containing infraumbilical hernia. Vasculature: Unremarkable. No abdominal aortic aneurysm. Lymph nodes: Unremarkable. No enlarged lymph nodes. IMPRESSION: 1. Status post cholecystectomy with tiny stone in the distal aspect of the common bile duct with mild extrahepatic biliary distention. If indicated, this can be further assessed with MRCP/ERCP. Remainder of abdominal viscera are unremarkable. 2. No acute appendicitis or bowel obstruction. Electronically signed by: Kathie Leos MD 08/02/23 23:18 PM Diagnostic Findings EKG as per my interpretation : Rate 100, NSR, normal axis, no ischemia
[2023-08-03] MEDS ORDERED: LORazepam 0.5 MG TAB PO PRN (00:28)
[2023-08-03] MEDS ORDERED: MoRPHine SULFATE 4 MG/ML 1 ML CARP\\VIAL IV PRN (00:28)
[2023-08-03] MEDS ORDERED: CYCLOBENZAPRINE HCL 10 MG TAB PO PRN (01:52)
[2023-08-03] MEDS: PROMETHAZINE HCL 12.5 MG in SODIUM CHLORIDE 0.9% 50 ML IV PRN (02:15)
[2023-08-03] MEDS: oxyCODONE HCL IR 5 MG TAB (IMMEDIATE RELEASE) PO PRN ×4 (02:15→21:01)
[2023-08-03 06:57] LABS: Basophils # (auto) 0.07 K/uL (0.00-0.20); Basophils % (auto) 0.7 %; Eosinophils # (auto) 0.11 K/uL (0.00-0.50); Eosinophils % (auto) 1.1 %; Hematocrit (blood only) 39.5 % (37.0-47.0); Hemoglobin 13.3 g/dl (12.0-16.0); Immature Granulocytes # (auto) 0.04 K/uL (0.01-0.20); Immature Granulocytes % (auto) 0.4 %; Lymphocytes # (auto) 3.27 K/uL (1.20-3.40); Mean Corpuscular Hgb Conc 33.7 g/dL (32.0-36.0); Mean Platelet Volume 9.6 fL (9.4-12.4); Monocytes # (auto) 0.57 K/uL (0.11-0.59); Monocytes % (auto) 5.9 %; Neutrophils # (auto) 5.57 K/uL (1.40-6.50); Neutrophils % (auto) 57.9 %; Platelet Count 291 K/uL (130-400); RDW Coefficient of Variation 12.8 % (11.5-14.5); RDW Standard Deviation 41.9 fL (36.4-46.3); Red Blood Count 4.44 M/uL (4.20-5.40); White Blood Count 9.63 K/ul (4.8-10.8)
[2023-08-03 07:36] LABS: Albumin Globulin Ratio 1.6 (0.9-2); Albumin Level 3.4 gm/dl (3.4-5.0); BUN Creatinine Ratio 19.6 (10-20); Bilirubin,Total 0.9 mg/dl (0.2-1.0); Calcium 8.7 mg/dl (8.6-10.3); Creatinine Clr Calc Pharmacy 177.7 ml/min; Est GFR (African American) 136.3 ml/min; Est GFR (Non-African American) 117.6 ml/min; Globulin 2.1 gm/dl (2.5-4.0); Potassium 3.7 mmol/L (3.5-5.1); Total Protein 5.5 gm/dl (6.0-8.3)
[2023-08-03 07:38] LABS: Estimated Average Glucose 100 mg/dl; Hemoglobin A1C 5.1 % (4.5-5.6)
[2023-08-03] MEDS: NYSTATIN CR 15 GM TUBE EXT SCH ×3 (08:32→20:08)
[2023-08-03] MEDS: PANTOprazole 40 MG TAB PO SCH (08:32)
[2023-08-03] MEDS: MULTIVITAMIN TAB PO SCH (08:32)
[2023-08-03] MEDS: ACETAMINOPHEN 500 MG TAB PO PRN (08:41)
--- NOTE | 2023-08-03 10:09 | Electrocardiogram Report ---
Test Reason : Blood Pressure : / mmHG Vent. Rate : 099 BPM Atrial Rate : 099 BPM P-R Int : 162 ms QRS Dur : 088 ms QT Int : 366 ms P-R-T Axes : 037 025 028 degrees QTc Int : 469 ms Normal sinus rhythm Cannot rule out Anterior infarct , age undetermined Abnormal ECG When compared with ECG of 06-JUN-2021 14:51, Minimal criteria for Anterior infarct are now Present Confirmed by Leo Freitas ([id number]) on 08/03/2023 10:08:52 AM Referred By: REFERRED SELF Confirmed By:Leo Freitas
--- NOTE | 2023-08-03 11:52 | Communication Note ---
Date of Service: August 03, 2023 pt was seen in the AM. Resting comfortably, denied acute concerns. Asking when she would be seen by GI. On exam, abdomen tender in RUQ. Liver enzymes are generally improving today. Pain meds, continue NPO status, appreciate GI recs. For further information, please see the History and physical from the same date of service.
--- NOTE | 2023-08-03 15:47 | Gastrointestinal Consultation ---
Date of Consultation August 03, 2023 Assessment & Plan (1) Choledocholithiasis: Plan choledocholithiasis on imaging, likely cause of her abdominal pains. recs: NPO post midnight ERCP tomorrow with Dr. Maldonado for treatment supportive care, IVFs if febrile start abx and culture. Thank you for allowing me to participate in the care of this patient History of Present Illness Attending Physician: Kayla Light MD History of Present Illness 47 yo female here for evaluation. She developed epigastric pains yesterday, felt like a gallbladder attack, s/p ccy over 10 years ago. notes chills as well and vomiting what she ate. CT imaging here shows distal CBD stone, choledocholithiasis. no fevers or leukocytosis at this time. denies recent abx, nsaid use. bilirubin normal today. CBC, CMP reviewed. Allergies Allergy/AdvReac Type Severity Reaction Status Date / Time Sulfa (Sulfonamide Allergy Severe HIVES, Verified 07/30/23 08:21 Antibiotics) ITCHING, HEART RACES Penicillins Allergy Intermediate SEVERE Verified 07/30/23 08:21 HEADACHE AND FEVER sulfamethoxazole Allergy Mild rash Verified 07/30/23 08:21 [From Bactrim] trimethoprim [From Bactrim] Allergy Mild rash Verified 07/30/23 08:21 amoxicillin AdvReac Intermediate Headache Verified 07/30/23 08:21 Home Medications Medication Instructions Recorded Confirmed Type omeprazole 20 mg capsule,delayed 20 mg PO QAM 10/05/19 08/03/23 History release multivitamin 1 tab PO QAM 06/13/21 08/03/23 History multivitamin,min-ferrous fumarate 1 tab PO QAM 09/17/21 08/03/23 History 3.3 mg-folic 25 mcg-herb tablet (Hair, Skin and Nails Advanced) cyclobenzaprine 10 mg tablet 10 mg PO TID PRN muscle spasm #20 08/04/22 08/03/23 Rx tabs nystatin 100,000 unit/gram topical 1 applic topical TID #30 grams 07/30/23 08/03/23 Rx cream semaglutide (weight loss) 2.4 2.4 mg subcut WK weight loss 08/03/23 08/03/23 History mg/0.75 mL subcutaneous pen injector (Lam) Patient History Medical History GERD (gastroesophageal reflux disease) Hx gestational diabetes Temporomandibular joint disorder NO LOCKING Irregular heart beat NO CARDS (ECHO DONE IN 2013 FOR PVCS- NO SIGNIFICANT ISSUES NOTED ON ECHO) History of COVID-19 04/10/21 (BODY ACHES AND FATIGUE, MILD COUGH, RUNNY NOSE) STILL HAVING HAIR LOSS Pelvic pain Barretts esophagus Menorrhagia Surgical History Family history of reaction to anesthesia FATHER>HARD TIME WAKING UP History of anesthesia reaction WHEN RECOVERING>BODY SHAKES ALL OVER History of esophagogastroduodenoscopy (EGD) History of colonoscopy S/P section X 2 Hx of cholecystectomy Status post tubal ligation Family History Grandfather (Paternal) Heart disease Grandmother (Paternal) Ovarian cancer Diabetes Father Colonic polyp Borderline diabetes Father Breast cancer Denies family history of Colorectal cancer Social History Smoking Status: Never smoker Second Hand Exposure: No; Do You Dip or Chew Tobacco: No; Hx Alcohol Use: No Hx Substance Use: No Preferred Language: Chadian Systems Requirements Planner Required: No Beliefs That Will Affect Care: None Current Living Situation: Spouse Feels Safe at Home: Yes Safety Concerns: Feels Safe At This Time Assistive Devices: CPAP Review of Systems Constitutional: no fever, no chills and no weight loss Eyes: as per Subjective / HPI Ear, Nose, Mouth, Throat: as per Subjective / HPI Respiratory: no dyspnea and no dyspnea on exertion Cardiovascular: no chest pain and no palpitations Gastrointestinal: as per Subjective / HPI Musculoskeletal: no joint pain and no swelling Integumentary: no rash and no lesions Neurologic: no numbness and no paresthesia Psychiatric: no depression and no anxiety Endocrine: no fatigue Hematologic / Lymphatic: no easy bleeding and no easy bruising Physical Exam Constitutional: WD/WN, vitals as above Eyes: EOM intact bilaterally Neck: normal visual inspection Respiratory: normal respiratory effort, lungs clear to auscultation Cardiovascular: RRR, no murmur, no edema Gastrointestinal (Abdomen): Inspection/Auscultation: abdomen normal to inspection; abdomen not distended Percussion/Palpation: + abdomen tender (mild epigastric) and abdomen soft; no hepatosplenomegaly Musculoskeletal: Head/Neck/Chest: normocephalic and head atraumatic Extremities: no cyanosis Skin: no rashes, warm and dry Neurologic: moves all extremities Psychiatric: Orientation: alert and cooperative Affect: euthymic affect Results & Data Vital Signs (Past 12 Hours) Vital Signs Temp Pulse Resp BP Pulse Ox O2 Del Method O2 Flow Rate 08/03/23 15:26 36.4 C L 72 16 106/71 97 Room Air 08/03/23 07:46 36.4 C L 74 111/78 98 Nasal Cannula 1 PG Care Time/CCT Total # of Minutes Spent Total Time Spent with Patient: Total time spent is greater than 50% in coordination of care (as documented) at patient's floor/unit and/or counseling patient: Coding Level of Care Code 38600 IN/OBS CONSULT LVL 4,60M Diagnoses Choledocholithiasis K80.50
[2023-08-03] MEDS: cefTRIAXone SODIUM 2,000 MG in DEXTROSE 5 % MINI-B 50 ML IV SCH (19:23)
[2023-08-04 06:54] LABS: Basophils # (auto) 0.08 K/uL (0.00-0.20); Eosinophils # (auto) 0.19 K/uL (0.00-0.50); Eosinophils % (auto) 2.4 %; Hematocrit (blood only) 43.7 % (37.0-47.0); Hemoglobin 14.4 g/dl (12.0-16.0); Immature Granulocytes # (auto) 0.03 K/uL (0.01-0.20); Immature Granulocytes % (auto) 0.4 %; Lymphocytes # (auto) 2.57 K/uL (1.20-3.40); Lymphocytes % (auto) 32.9 %; Mean Corpuscular Hemoglobin 29.8 pg (25.0-34.0); Mean Corpuscular Volume 90.3 fL (80.0-100.0); Mean Platelet Volume 9.2 fL (9.4-12.4); Monocytes # (auto) 0.53 K/uL (0.11-0.59); Monocytes % (auto) 6.8 %; Neutrophils % (auto) 56.5 %; Platelet Count 282 K/uL (130-400); RDW Coefficient of Variation 12.6 % (11.5-14.5); RDW Standard Deviation 41.9 fL (36.4-46.3); Red Blood Count 4.84 M/uL (4.20-5.40)
[2023-08-04 07:09] LABS: Calcium 8.8 mg/dl (8.6-10.3); Creatinine Clr Calc Pharmacy 163.5 ml/min; Est GFR (African American) 132.6 ml/min; Est GFR (Non-African American) 114.5 ml/min; Potassium 3.7 mmol/L (3.5-5.1)
[2023-08-04] MEDS: PANTOprazole 40 MG TAB PO SCH (07:33)
[2023-08-04] MEDS: NYSTATIN CR 15 GM TUBE EXT SCH ×3 (07:33→19:24)
[2023-08-04] MEDS: MULTIVITAMIN TAB PO SCH (07:33)
[2023-08-04 07:56] LABS: Albumin Globulin Ratio 1.5 (0.9-2); Albumin Level 3.7 gm/dl (3.4-5.0); Bilirubin,Total 0.8 mg/dl (0.2-1.0); Globulin 2.4 gm/dl (2.5-4.0); Magnesium 2.2 mg/dl (1.7-2.4); Phosphorus 3.4 mg/dl (2.5-4.9); Total Protein 6.1 gm/dl (6.0-8.3)
--- NOTE | 2023-08-04 08:51 | Gastroenterology Progress Note ---
Date of Service August 04, 2023 Assessment & Plan (1) Choledocholithiasis: Plan: 47 year old female presenting with abd pain, nausea/vomiting, elevated transaminases and imaging concerning for a stone withing the CBD and CBD dilation, concerning for choledocholithiasis. NPO for ERCP, risks/benefits/alternatives discussed, all questions answered Antiemetics PRN Analgesia PRN May continue ABX Repeat LFTs tomorrow We appreciate assistance in the management of any serological abnormality and corrections to include: hemoglobin >7, INR <2, platelets >50,000, potassium levels >3.5 but <5.3, and sodium levels within 5 points of the reference range prior to endoscopic evaluation. Admission and Anticipated Discharge Date Admission Date: August 03, 2023 Supervising Physician Co-Signing Physician Notes Pt with typical bililary pain, evidence of cbd stone by labs and imaging. Await ERCP, r/b/i discussed in great detail. Subjective Pt was seen and evaluated, chart reviewed. NPO for ERCP today. Endorses abd pain which started Friday with episode of nausea/vomiting at home. Imaging concerning for CBD stones, elevated LFTs. No use of anticoagulants Tbili 1.2 --> 0.9 AST 347 --> 293 ALT 313 --> 623 ALKP 81 --> 100 Lipase 35 S/P CCY around 10 years ago CTAP 2023: Status post cholecystectomy with tiny stone in the distal aspect of the common bile duct with mild extrahepatic biliary distention. If indicated, this can be further assessed with MRCP/ERCP. Remainder of abdominal viscera are unremarkable. Review of Systems Review of Systems: All systems reviewed & are unremarkable except as noted in HPI & below Physical Exam Constitutional: WD/WN, vitals as above Neck: trachea midline Respiratory: normal respiratory effort; no respiratory distress and no labored breathing Cardiovascular: Rate/Rhythm: regular rate Gastrointestinal (Abdomen): Inspection/Auscultation: abdomen normal to ins pection and normal bowel sounds; abdomen not distended Percussion/Palpation: + abdomen tender and abdomen soft; no guarding and abdomen not rigid Skin: no rashes, warm and dry Results & Data Vital Signs (Past 12 Hours) Vital Signs Temp Pulse Resp BP Pulse Ox O2 Del Method 08/04/23 08:02 Room Air 08/04/23 07:25 36.6 C 67 16 124/79 96 Room Air Laboratory Results 08/04/23 Range/Units 06:23 WBC 7.80 (4.8-10.8) K/ul RBC 4.84 (4.20-5.40) M/uL Hgb 14.4 (12.0-16.0) g/dl Hct 43.7 (37.0-47.0) % MCV 90.3 (80.0-100.0) fL MCH 29.8 (25.0-34.0) pg MCHC 33.0 (32.0-36.0) g/dL RDW Std Deviation 41.9 (36.4-46.3) fL RDW Coeff of Shonda 12.6 (11.5-14.5) % Plt Count 282 (130-400) K/uL MPV 9.2 L (9.4-12.4) fL Immature Gran % (Auto) 0.4 % Neut % (Auto) 56.5 % Lymph % (Auto) 32.9 % [place] % (Auto) 6.8 % Eos % (Auto) 2.4 % Baso % (Auto) 1.0 % Neut # (Auto) 4.40 (1.40-6.50) K/uL Lymph # (Auto) 2.57 (1.20-3.40) K/uL [place] # (Auto) 0.53 (0.11-0.59) K/uL Eos # (Auto) 0.19 (0.00-0.50) K/uL Baso # (Auto) 0.08 (0.00-0.20) K/uL Immature Gran # (Auto) 0.03 (0.01-0.20) K/uL Sodium 140 (136-145) mmol/L Potassium 3.7 (3.5-5.1) mmol/L Chloride 108 H (98-107) mmol/L Carbon Dioxide 26 (21-32) mmol/L Anion Gap 6 (3-11) BUN 8 (6-23) mg/dl Creatinine 0.50 L (0.6-1.2) mg/dl Est Cr Clr Drug Dosing 163.5 ml/min Est GFR ( Amer) 132.6 ml/min Est GFR (Non-Af Amer) 114.5 ml/min BUN/Creatinine Ratio 16.0 (10-20) Glucose 81 (70-99(Fasting)) mg/dl Calcium 8.8 (8.6-10.3) mg/dl Phosphorus 3.4 (2.5-4.9) mg/dl Magnesium 2.2 (1.7-2.4) mg/dl Total Bilirubin 0.8 (0.2-1.0) mg/dl AST 293 H (13-39) U/L ALT 623 H (7-52) U/L Alkaline Phosphatase 100 (34-104) U/L Total Protein 6.1 (6.0-8.3) gm/dl Albumin 3.7 (3.4-5.0) gm/dl Globulin 2.4 L (2.5-4.0) gm/dl Albumin/Globulin Ratio 1.5 (0.9-2)
[2023-08-04] MEDS: oxyCODONE HCL IR 5 MG TAB (IMMEDIATE RELEASE) PO PRN ×2 (11:25→17:36)
--- NOTE | 2023-08-04 14:32 | Anesthesiology Consultation ---
Date of Service August 04, 2023 Assessment & Plan Chart Review Chart Review: Acceptable Risk for Surgery Consults Requested none History Surgery Operation Date: 08/04/23 09:00 Proposed Procedures p Endoscopic Retrograde Cholangiopancreatogram - Mariela Maldonado MD Height/Weight Height: 5 ft 2 in Weight: 113 kg Allergies Allergy/AdvReac Type Severity Reaction Status Date / Time Sulfa (Sulfonamide Allergy Severe HIVES, Verified 07/30/23 08:21 Antibiotics) ITCHING, HEART RACES Penicillins Allergy Intermediate SEVERE Verified 07/30/23 08:21 HEADACHE AND FEVER sulfamethoxazole Allergy Mild rash Verified 07/30/23 08:21 [From Bactrim] trimethoprim [From Bactrim] Allergy Mild rash Verified 07/30/23 08:21 amoxicillin AdvReac Intermediate Headache Verified 07/30/23 08:21 Medications Home Medications Medication Instructions Recorded Confirmed Last Taken omeprazole 20 mg capsule,delayed 20 mg PO QAM 10/05/19 08/03/23 08/02/23 release multivitamin 1 tab PO QAM 06/13/21 08/03/23 08/02/23 multivitamin,min-ferrous fumarate 1 tab PO QAM 09/17/21 08/03/23 08/02/23 3.3 mg-folic 25 mcg-herb tablet (Hair, Skin and Nails Advanced) cyclobenzaprine 10 mg tablet 10 mg PO TID PRN muscle spasm #20 08/04/22 08/03/23 Unknown tabs nystatin 100,000 unit/gram topical 1 applic topical TID #30 grams 07/30/23 08/03/23 08/02/23 cream semaglutide (weight loss) 2.4 2.4 mg subcut WK weight loss 08/03/23 08/03/23 07/30/23 mg/0.75 mL subcutaneous pen injector (Lam) Active Medications Generic Name Dose Route Start Last Admin Trade Name Freq PRN Reason Stop Dose Admin Acetaminophen 500 mg 08/03/23 00:28 08/03/23 08:41 Acetaminophen 500 Mg Tab PO 09/02/23 00:27 500 mg Q6H PRN Administration fever/pain Promethazine HCl 12.5 mg/ 50.5 mls @ 202 mls/hr 08/03/23 00:28 08/03/23 02:39 Sodium Chloride IV 09/02/23 00:27 Infused Q6H PRN Infusion Nausea And Vomiting Ceftriaxone Sodium 2,000 mg/ 50 mls @ 100 mls/hr 08/03/23 19:00 08/03/23 20:08 Dextrose IV 08/13/23 18:59 Infused Q24H ISIS Infusion Protocol Multivitamins 1 tab 08/03/23 09:00 08/04/23 07:33 Multivitamin Tab PO 09/02/23 08:59 1 tab QAM ISIS Administration Nystatin 1 appln 08/03/23 09:00 08/04/23 07:33 Nystatin Cr 15 Gm Tube EXT 08/13/23 08:59 1 appln TID ISIS Administration Oxycodone HCl 5 - 10 mg 08/03/23 00:28 08/04/23 11:25 Oxycodone Hcl Ir 5 Mg Tab (Immediate Release) PO 08/17/23 00:27 5 mg QID PRN Administration Pain Pantoprazole Sodium 40 mg 08/03/23 09:00 08/04/23 07:33 Pantoprazole 40 Mg Tab PO 09/02/23 08:59 40 mg QAM ISIS Administration NPO Date Last Intake of Fluids: 08/03/23 Time Last Intake of Fluids: 21:00 Past Medical History Medical History GERD (gastroesophageal reflux disease) Hx gestational diabetes Temporomandibular joint disorder NO LOCKING Irregular heart beat NO CARDS (ECHO DONE IN 2013 FOR PVCS- NO SIGNIFICANT ISSUES NOTED ON ECHO) History of COVID-19 04/10/21 (BODY ACHES AND FATIGUE, MILD COUGH, RUNNY NOSE) STILL HAVING HAIR LOSS Pelvic pain Barretts esophagus Menorrhagia Past Family History Family History Grandfather (Paternal) Heart disease Grandmother (Paternal) Ovarian cancer Diabetes Father Colonic polyp Borderline diabetes Father Breast cancer Denies family history of Colorectal cancer Past Surgical History Surgical History Family history of reaction to anesthesia FATHER>HARD TIME WAKING UP History of anesthesia reaction WHEN RECOVERING>BODY SHAKES ALL OVER History of esophagogastroduodenoscopy (EGD) History of colonoscopy S/P section X 2 Hx of cholecystectomy Status post tubal ligation Social History Smoking Status: Never smoker Do You Dip or Chew Tobacco: No Hx Alcohol Use: No Alcohol type: wine alcohol intake frequency: a few times a month Hx Substance Use: No substance use type: does not use Review of Systems Constitutional: no fever, no chills and no weight loss Eyes: as per Subjective / HPI Ear, Nose, Mouth, Throat: as per Subjective / HPI Respiratory: no dyspnea and no dyspnea on exertion Cardiovascular: no chest pain and no palpitations Gastrointestinal: as per Subjective / HPI Musculoskeletal: no joint pain and no swelling Integumentary: no rash and no lesions Neurologic: no numbness and no paresthesia Psychiatric: no depression and no anxiety Endocrine: no fatigue Hematologic / Lymphatic: no easy bleeding and no easy bruising Physical Exam Vital Signs Last Vital Signs Temp 36.5 C 08/04/23 14:06 Pulse 72 08/04/23 14:06 Resp 16 08/04/23 14:06 BP 122/76 08/04/23 14:06 Pulse Ox 97 08/04/23 14:06 O2 Del Method Room Air 08/04/23 14:06 O2 Flow Rate 1 08/03/23 07:46 Constitutional WD/WN, vitals as above Eyes EOM intact bilaterally Neck normal visual inspection and trachea midline Respiratory normal respiratory effort, lungs clear to auscultation normal respiratory effort; no respiratory distress and no labored breathing Cardiovascular RRR, no murmur, no edema Rate/Rhythm: regular rate Gastrointestinal (Abdomen) Inspection/Auscultation: abdomen normal to inspection and normal bowel sounds; abdomen not distended Percussion/Palpation: + abdomen tender and abdomen soft; no guarding, abdomen not rigid and no hepatosplenomegaly Musculoskeletal Head/Neck/Chest: normocephalic and head atraumatic Extremities: no cyanosis Skin no rashes, warm and dry Psychiatric Orientation: alert and cooperative Affect: euthymic affect Testing Laboratory Results 08/04/23 06:23 08/04/23 06:23 Hemoglobin A1c 5.1 % (4.5-5.6) 08/02/23 21:03 Urine Color Yellow 08/02/23 22:03 Urine Appearance Slightly Cloudy (Clear) 08/02/23 22:03 Urine pH 7.5 (4.5-7.5) 08/02/23 22:03 Ur Specific [place] 1.020 (1.000-1.030) 08/02/23 22:03 Urine Protein Negative (Negative) 08/02/23 22:03 Urine Glucose (UA) Negative (Negative) 08/02/23 22:03 Urine Ketones Negative (Negative) 08/02/23 22:03 Urine Nitrite Negative (Negative) 08/02/23 22:03 Ur Leukocyte Esterase Negative (Negative) 08/02/23 22:03 Urine RBC 0-4 /hpf (0-4) 08/02/23 22:03 Urine WBC 0-5 /hpf (0-5) 08/02/23 22:03 Ur Epithelial Cells 0-5 /lpf (0-5) 08/02/23 22:03 08/02/23 22:03 Urine Culture - Final Urine,Clean Catch More than three types of organisms present, all low counts mixed probable skin jocelyn. No further identifications or sensitivities to follow.
[2023-08-04] MEDS ORDERED: MIDAZOLAM HCL 1 MG/ML 2ML VIAL ONE (15:05)
[2023-08-04] MEDS ORDERED: fentaNYL citrate PF 100 MCG/2 ML VIAL ONE ×2 (15:05→16:02)
--- NOTE | 2023-08-04 15:32 | History & Physical Bridge Note ---
Date of Service August 04, 2023 History & Physical Bridge Note I have examined the patient, reviewed the History & Physical and in the interval since the performance of the History & Physical I have noted the following changes of clinical significance: no changes noted ERCP Patient was explained in detail regarding risks, benefits, limitations and alternatives of the above endoscopic procedure. Risks of intravenous sedation used for procedure were also explained. Risks include, but not limited to perforation, bleeding, infection, respiratory distress, cardiac arrest and . Patient is also aware about the possibility of missed lesion. Patient's questions were answered. The patient verbalized understanding the information and agreed to undergo the procedure.
[2023-08-04] MEDS ORDERED: PROMETHAZINE HCL 12.5 MG in SODIUM CHLORIDE 0.9% 50 ML IV PRN (15:40)
[2023-08-04] MEDS ORDERED: ATROPINE SULFATE 0.1 MG/ML 10ML SYR IV PRN (15:40)
[2023-08-04] MEDS ORDERED: HYDROmorphone INJ 2 MG/ML SYR/VIAL IV PRN (15:40)
[2023-08-04] MEDS ORDERED: ONDANSETRON INJ 2 MG/ML 2 ML VIAL IV PRN (15:40)
[2023-08-04] MEDS ORDERED: ePHEDrine sulfate 50 MG/ML AMP IV PRN (15:40)
[2023-08-04] MEDS ORDERED: INDOMETHACIN 50 MG SUPP PR ONE (15:47)
[2023-08-04] MEDS ORDERED: PROPOFOL IV EMULSION 10 MG/ML 20 ML VIAL IV ONE ×2 (15:53→16:05)
[2023-08-04] MEDS ORDERED: ONDANSETRON INJ 2 MG/ML 2 ML VIAL ONE (15:53)
[2023-08-04] MEDS ORDERED: GLYCOPYRROLATE 0.2 MG/ML VIAL ONE (15:53)
[2023-08-04] MEDS ORDERED: LIDOCAINE 2% 2 ML VIAL/AMP(20MG/ML) INFIL ONE (15:53)
--- NOTE | 2023-08-04 16:12 | Operative Report ---
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 Any exceptions are noted below.
--- NOTE | 2023-08-04 16:25 | GI REPORT ---
Patient Name: Aiyana Palacios Procedure Date: 08/04/2023 3:11 PM Date of : 1975 Admit Type: Inpatient Age: 47 Gender: Female Attending MD: Mariela Maldonado MD, Procedure: ERCP Providers: Mariela Maldonado MD Referring MD: Kayla Light Md Indications: For therapy of bile duct stone(s) Medicines: Propofol per Anesthesia Complications: No immediate complications. Estimated Blood Loss: Estimated blood loss: none. Procedure: Pre-Anesthesia Assessment: - Prior to the procedure, a History and Physical was performed, and patient medications, allergies and sensitivities were reviewed. The patient's tolerance of previous anesthesia was reviewed. - The risks and benefits of the procedure and the sedation options and risks were discussed with the patient. All questions were answered and informed consent was obtained. - Patient identification and proposed procedure were verified prior to the procedure by the physician and the nurse. The procedure was verified in the procedure room. - Pre-procedure physical examination revealed no contraindications to sedation. After obtaining informed consent, the scope was passed under direct vision. Throughout the procedure, the patient's blood pressure, pulse, and oxygen saturations were monitored continuously. The Duodenoscope was introduced through the mouth, and advanced to the duodenum and used to inject contrast into the bile duct. The ERCP was accomplished without difficulty. The patient tolerated the procedure well. Findings: A wet inspector optical glass film of the abdomen was obtained. Surgical clips, consistent with a previous cholecystectomy, were seen in the area of the right upper quadrant of the abdomen. The esophagus was successfully intubated under direct vision. The scope was advanced to a normal major papilla in the descending duodenum without detailed examination of the pharynx, larynx and associated structures, and upper GI tract. The upper GI tract was grossly normal. A 0.025 inch x 270 cm angled Visiglide wire was passed into the biliary tree. The short-nosed traction sphincterotome was passed over the guidewire and the bile duct was then deeply cannulated. Contrast was injected. I personally interpreted the bile duct images. Ductal flow of contrast was adequate. Image quality was adequate. Contrast extended to the main bile duct. Opacification of the entire biliary tree except for the gallbladder was successful. The maximum diameter of the ducts was 9 mm. The lower third of the main bile duct contained one stone. Biliary sphincterotomy was made with a monofilament traction (standard) sphincterotome using ERBE electrocautery. There was no post-sphincterotomy bleeding. Dilation of the common bile duct with an 8 mm balloon dilator was successful. The biliary tree was swept with a 12 mm balloon starting at the bifurcation. Sludge was swept from the duct. One stone was removed. No stones remained. One 7 Fr by 7 cm plastic biliary stent with a single external pigtail and a single internal pigtail was placed into the common bile duct. Bile flowed through the stent. The stent was in good position. Indomethacin 100 mg was given via suppository to decrease the risk of post-ERCP pancreatitis (PEP). Impression: - Choledocholithiasis was found. Complete removal was accomplished by biliary sphincterotomy and balloon extraction. - One plastic biliary stent was placed into the common bile duct. Recommendation: - [facility]. - Repeat ERCP in 3 months to remove stent. Mariela Maldonado MD 08/04/2023 4:24:48 PM This report has been signed electronically. Note Initiated On: 08/04/2023 3:11 PM Number of Addenda: 0 I attest to the content of the Intraoperative Record and orders documented therein, exceptions below {[id number]}
[2023-08-04] MEDS: fentaNYL citrate PF 100 MCG/2 ML VIAL IV PRN ×2 (16:37→16:42)
--- NOTE | 2023-08-04 16:49 | Anesthesiology Progress Note ---
Date of Service August 04, 2023 Anesthesia Post Procedure Vital Signs Vital Signs: Temp Pulse Pulse Resp BP BP Pulse Ox 08/04/23 16:40 88 12 160/84 H 97 08/04/23 16:30 94 H 14 155/91 H 100 08/04/23 16:21 37 C 100 H 16 144/87 H 99 08/04/23 15:23 37.3 C 88 16 137/82 98 08/04/23 14:06 36.5 C 72 16 122/76 97 08/04/23 08:02 08/04/23 07:25 36.6 C 67 16 124/79 96 08/03/23 19:26 36.4 C L 65 16 123/67 96 O2 Del Method O2 Flow Rate 08/04/23 16:40 Room Air 08/04/23 16:30 Oxymask 3 08/04/23 16:21 Oxymask 6 08/04/23 15:23 Room Air 08/04/23 14:06 Room Air 08/04/23 08:02 Room Air 08/04/23 07:25 Room Air 08/03/23 19:26 Room Air Pain Intensity Abdomen: Pain Intensity: 6 Transfer of Care Handoff Completed per policy Notes Mental Status: alert / awake / arousable and participated in evaluation Patient Amnestic to Procedure: Yes Nausea / Vomiting: adequately controlled Pain: adequately controlled Airway Patency, RR, SpO2: stable & adequate BP & HR: stable & adequate Hydration State: stable & adequate Anesthetic Complications: no major complications apparent
--- NOTE | 2023-08-04 17:41 | Hospitalist Progress Note ---
Date of Service August 04, 2023 Assessment & Plan (1) Choledocholithiasis: Plan: Pt is a 47oF with PMHx significant for GERD, NAFLD, gestational DM, PCOS, morbid obesity on Wegovy admitted with choledocholithiasis. Choledocholithiasis Causing biliary tract obstruction, not currently septic WBC elevated on admission Liver enzymes elevated on admission: T bili 1.2 AST 347, ALT 313, alk phos wnl Pain control, antiemetics as needed, IVF ERCP on 08/04 Pt received 2 g of IV Mefoxin in the ED GI Consulted- appreciate recs Complicated UTI UA was suggestive of infection Urine cx pending Continue with Rocephin, narrow based on cx results Situational hypertension BP currently improved Hyperglycemia Hx of Gestational DM Hgba1c wnl at 5.1 History GERD on PPI Intertrigo responding to outpatient topical nystatin Rx from [employer] DVT prophylaxis: SCDs Re: Possible procedure Full code Patient requesting updates providers. Mr. Misael Palacios, contact #[phone]. Admission and Anticipated Discharge Date Admission Date: August 03, 2023 Subjective pt was seen before her ERCP. Denied N/V. Noted she had a diet of clears the day before and had tolerated that well. Otherwise denied acute concerns. Review of Systems Review of Systems: All systems reviewed & are unremarkable except as noted in Subjective Physical Exam Physical Exam: General: Alert, oriented. No acute distress Psych: Appropriate mood and affect Neuro: No gross deficits HEENT: NC/AT Chest: Nontender to palpation. CV: RRR, Normal s1, s2. Resp: Breath sounds clear bilaterally, no increased effort of breathing. Abdomen: Soft, tender in RUQ/epigastrium Extremities: No edema in lower extremities bilaterally. Results & Data Results & Data Vital Signs (Past 12 Hours) Vital Signs Temp Pulse Resp BP Pulse Ox O2 Del Method 08/04/23 08:02 Room Air 08/04/23 07:25 36.6 C 67 16 124/79 96 Room Air
[2023-08-04] MEDS: cefTRIAXone SODIUM 2,000 MG in DEXTROSE 5 % MINI-B 50 ML IV SCH (19:24)
--- NOTE | 2023-08-04 19:33 | Fluoroscopy Report ---
INTRAOPERATIVE RADIOGRAPHS CLINICAL HISTORY: ERCP. Fluoro time: 52 seconds Ka,r: 26.87 mGy FINDINGS: 8 spot fluoroscopic views of the right upper quadrant from an ERCP procedure are correlated with abdominal CT dated 08/02/2023. Cholecystectomy clips are noted. A wire is advanced into the comm on bile duct. Injected contrast shows dilatation of the common duct. Intraluminal filling defects are consistent with choledocholithiasis. A balloon sweep of the duct is performed. The final images show a common bile duct stent in place. IMPRESSION: Intraoperative ERCP images as above. See operative report for detailed findings. Electronically signed by: Lázaro Nazario M.D. 08/04/2023 7:32 PM
[2023-08-04] MEDS ORDERED: SIMETHICONE 80 MG CHEW PO ONE (21:51)
[2023-08-05] MEDS: oxyCODONE HCL IR 5 MG TAB (IMMEDIATE RELEASE) PO PRN (03:06)
[2023-08-05 07:41] LABS: Basophils # (auto) 0.07 K/uL (0.00-0.20); Basophils % (auto) 0.5 %; Eosinophils # (auto) 0.08 K/uL (0.00-0.50); Eosinophils % (auto) 0.6 %; Hematocrit (blood only) 43.6 % (37.0-47.0); Hemoglobin 14.6 g/dl (12.0-16.0); Immature Granulocytes # (auto) 0.05 K/uL (0.01-0.20); Immature Granulocytes % (auto) 0.4 %; Lymphocytes # (auto) 2.21 K/uL (1.20-3.40); Lymphocytes % (auto) 17.2 %; Mean Corpuscular Hemoglobin 29.7 pg (25.0-34.0); Mean Corpuscular Hgb Conc 33.5 g/dL (32.0-36.0); Mean Corpuscular Volume 88.6 fL (80.0-100.0); Monocytes % (auto) 5.4 %; Neutrophils # (auto) 9.74 K/uL (1.40-6.50); Neutrophils % (auto) 75.9 %; Platelet Count 279 K/uL (130-400); RDW Coefficient of Variation 12.2 % (11.5-14.5); RDW Standard Deviation 39.7 fL (36.4-46.3); Red Blood Count 4.92 M/uL (4.20-5.40); White Blood Count 12.85 K/ul (4.8-10.8)
[2023-08-05] MEDS: ACETAMINOPHEN 500 MG TAB PO PRN (07:49)
[2023-08-05] MEDS ORDERED: SIMETHICONE 80 MG CHEW PO PRN (08:03)
[2023-08-05] MEDS: PANTOprazole 40 MG TAB PO SCH (08:39)
[2023-08-05] MEDS: MULTIVITAMIN TAB PO SCH (08:39)
[2023-08-05] MEDS: NYSTATIN CR 15 GM TUBE EXT SCH ×3 (08:41→22:10)
[2023-08-05 08:42] LABS: Albumin Globulin Ratio 1.6 (0.9-2); Albumin Level 3.9 gm/dl (3.4-5.0); BUN Creatinine Ratio 13.5 (10-20); Bilirubin,Total 0.6 mg/dl (0.2-1.0); Calcium 8.8 mg/dl (8.6-10.3); Creatinine Clr Calc Pharmacy 157.2 ml/min; Est GFR (African American) 130.9 ml/min; Globulin 2.4 gm/dl (2.5-4.0); Magnesium 2.1 mg/dl (1.7-2.4); Phosphorus 3.1 mg/dl (2.5-4.9); Potassium 3.7 mmol/L (3.5-5.1); Total Protein 6.3 gm/dl (6.0-8.3)
[2023-08-05] MEDS ORDERED: bisacodyL 5 MG TABEC PO ONE (08:59)
[2023-08-05] MEDS ORDERED: POLYETHYLENE (MIRALAX) 17 GM PACK PO SCH (09:00)
--- NOTE | 2023-08-05 09:15 | Gastroenterology Progress Note ---
Date of Service August 05, 2023 Assessment & Plan (1) Choledocholithiasis: Plan 47 year old female presenting with abd pain, nausea/vomiting, elevated transaminases and imaging concerning for a stone within the CBD and CBD dilation, concerning for choledocholithiasis. S/P ERCP w/ biliary sphincterotomy and balloon extraction, CBD stent placed KUB today Miralax 1 capful twice daily Clear liquid diet as tolerated, may advance as tolerated Antiemetics PRN Analgesia PRN Repeat ERCP in 3 months for stent removal Thank you for allowing us to participate in the care of this patient. Please call with any acute changes, questions or concerns. Please see addendum below with additional recommendation from my supervising physician. Admission and Anticipated Discharge Date Admission Date: August 03, 2023 Supervising Physician Co-Signing Physician Notes Pt with abdominal pain post ERCP. Mod tenderness on abd exam. Will w/u for post ERCP pancreatitis with CT. Subjective S/P ERCP for stone removal, stent placement. Feels some spasm of upper abd. Is tolerating a liquid diet but not hungry. No nausea, vomiting. She does however, report, lower abd fullness, pressure which radiates down to her pelvis. Suggest constipation, no BM since arrival which is not common for her. She is unable to recall when she last passed gas. Tbili 0.6 AST 115 ALT 440 ALKP 98 Review of Systems Review of Systems: All systems reviewed & are unremarkable except as noted in HPI & below Physical Exam Constitutional: WD/WN, vitals as above Respiratory: normal respiratory effort, lungs clear to auscultation Cardiovascular: Rate/Rhythm: regular rate and regular rhythm Gastrointestinal (Abdomen): Percussion/Palpation: + abdomen tender (lower abde) and abdomen soft; no guarding and abdomen not rigid Skin: no rashes, warm and dry Results & Data Vital Signs (Past 12 Hours) Vital Signs Temp Pulse BP Pulse Ox O2 Del Method 08/05/23 07:30 36.8 C 76 142/79 H 97 Room Air Laboratory Results 08/05/23 Range/Units 07:20 WBC 12.85 H (4.8-10.8) K/ul RBC 4.92 (4.20-5.40) M/uL Hgb 14.6 (12.0-16.0) g/dl Hct 43.6 (37.0-47.0) % MCV 88.6 (80.0-100.0) fL MCH 29.7 (25.0-34.0) pg MCHC 33.5 (32.0-36.0) g/dL RDW Std Deviation 39.7 (36.4-46.3) fL RDW Coeff of Shonda 12.2 (11.5-14.5) % Plt Count 279 (130-400) K/uL MPV 9.0 L (9.4-12.4) fL Immature Gran % (Auto) 0.4 % Neut % (Auto) 75.9 % Lymph % (Auto) 17.2 % Hardy % (Auto) 5.4 % Eos % (Auto) 0.6 % Baso % (Auto) 0.5 % Neut # (Auto) 9.74 H (1.40-6.50) K/uL Lymph # (Auto) 2.21 (1.20-3.40) K/uL Hardy # (Auto) 0.70 H (0.11-0.59) K/uL Eos # (Auto) 0.08 (0.00-0.50) K/uL Baso # (Auto) 0.07 (0.00-0.20) K/uL Immature Gran # (Auto) 0.05 (0.01-0.20) K/uL Sodium 137 (136-145) mmol/L Potassium 3.7 (3.5-5.1) mmol/L Chloride 105 (98-107) mmol/L Carbon Dioxide 26 (21-32) mmol/L Anion Gap 6 (3-11) BUN 7 (6-23) mg/dl Creatinine 0.52 L (0.6-1.2) mg/dl Est Cr Clr Drug Dosing 157.2 ml/min Est GFR ( Amer) 130.9 ml/min Est GFR (Non-Af Amer) 113.0 ml/min BUN/Creatinine Ratio 13.5 (10-20) Glucose 109 H (70-99(Fasting)) mg/dl Calcium 8.8 (8.6-10.3) mg/dl Phosphorus 3.1 (2.5-4.9) mg/dl Magnesium 2.1 (1.7-2.4) mg/dl Total Bilirubin 0.6 (0.2-1.0) mg/dl AST 115 H (13-39) U/L ALT 440 H (7-52) U/L Alkaline Phosphatase 98 (34-104) U/L Total Protein 6.3 (6.0-8.3) gm/dl Albumin 3.9 (3.4-5.0) gm/dl Globulin 2.4 L (2.5-4.0) gm/dl Albumin/Globulin Ratio 1.6 (0.9-2) Lipase Pending
[2023-08-05] MEDS: metroNIDAZOLE 500 MG/100 ML BAG IV SCH ×2 (09:45→17:06)
--- NOTE | 2023-08-05 09:52 | XRay Report ---
KUB HISTORY: Right upper quadrant abdominal pain status post stent placement. COMPARISON: Abdomen and pelvis CT 08/02/2023. FINDINGS: The bowel gas pattern is unremarkable. There are no dilated loops of small bowel to suggest an obstruction. No renal calculi. No ureteral calculi. Calcifications in the deep pelvis likely rep resent phleboliths. Mild levoscoliosis and degenerative changes within the lumbar spine. Mild degener ative changes within the bilateral sacroiliac joints. Prior cholecystectomy. There is evidence for a common bile duct stent within the right upper quadrant. This is likely in good position.. No gallston es adjacent to the common bile duct stent. No pneumoperitoneum or pneumatosis. IMPRESSION: 1. Nonobstructive bowel gas pattern. 2. Prior cholecystectomy with a common bile duct stent within the right upper quadrant. This is likel y in good position. No gallstones identified adjacent to the common bile duct stent. ACT 112: Negative or not required by law. Electronically signed by: Oliver Garcia M.D. 08/05/2023 9:50 AM
[2023-08-05] MEDS ORDERED: HYDROmorphone INJ 0.5 MG/0.5 ML SYR IV STA (11:14)
[2023-08-05] MEDS: LACTATED RINGER'S 1,000 ML IV SCH ×3 (11:24→22:57)
[2023-08-05] MEDS ORDERED: HYDROmorphone INJ 0.5 MG/0.5 ML SYR IM PRN (11:38)
[2023-08-05] MEDS: PROMETHAZINE HCL 12.5 MG in SODIUM CHLORIDE 0.9% 50 ML IV PRN (11:53)
[2023-08-05] MEDS ORDERED: OPTIRAY 320 500ml IV ONE (13:29)
[2023-08-05] MEDS: ACETAMINOPHEN 1,000 MG/100 ML VIAL IV PRN (13:49)
--- NOTE | 2023-08-05 13:57 | CT Scan Report ---
ABDOMEN AND PELVIS CT WITH IV CONTRAST CT DOSE: 1468.73 mGy.cm HISTORY: Mid abdominal pain. pancreatitis TECHNIQUE: Multiaxial CT images of the abdomen and pelvis were performed following the use of intrave nous contrast. A dose lowering technique was utilized adhering to the principles of ALARA. COMPARISON STUDY: Abdomen and pelvis CT 08/02/2023. FINDINGS: The lung bases are clear. No pneumoperitoneum. No pneumatosis. No acute fractures identifie d. Small fat-containing umbilical hernia. The liver, spleen, adrenal glands, and kidneys are unremark able. No hydronephrosis. The main portal vein is patent. Prior cholecystectomy. Interval placement of a common bile duct stent which appears in good position. No evidence for residual common bile duct s tone. No bile duct dilatation. Interval follow-up mild peripancreatic edema/inflammatory change consi stent with acute pancreatitis. No evidence for pancreatic necrosis or peripancreatic fluid collection s. Mild thickening of the adjacent duodenum is likely reactive. No retroperitoneal lymphadenopathy. N ormal caliber abdominal aorta. No pelvic lymphadenopathy or pelvic free fluid. The bladder and ovarie s are unremarkable. Prior hysterectomy. A few colonic diverticula. No evidence for acute diverticulit is. No evidence for bowel obstruction. Normal appendix. IMPRESSION: 1. Interval development of acute pancreatitis. 2. The common bile duct stent appears in good position. No bile duct dilatation identified or evidenc e for choledocholithiasis. 3. Prior cholecystectomy. 4. Mild thickening of the duodenum is likely reactive to the acute pancreatitis. 5. No evidence for bowel obstruction. ACT 112: Negative or not required by law. Electronically signed by: Oliver Garcia M.D. 08/05/2023 1:55 PM
--- NOTE | 2023-08-05 14:14 | Hospitalist Progress Note ---
Date of Service August 05, 2023 Assessment & Plan (1) Choledocholithiasis: Plan: Pt is a 47oF with PMHx significant for GERD, NAFLD, gestational DM, PCOS, morbid obesity on [place] admitted with choledocholithiasis. Choledocholithiasis Causing biliary tract obstruction, not currently septic WBC elevated on admission Liver enzymes elevated on admission: T bili 1.2 AST 347, ALT 313, alk phos wnl AST 115 ALT 440 and down trending Pain control, antiemetics as needed, IVF ERCP on 08/04 Pt received 2 g of IV Mefoxin in the ED GI Consulted- appreciate recs continue empiric antibiotics with rocephin + flagyl for now (this used for UTI c overage as well as biliary) POST ERCP PANCREATITIS will downgrade diet to NPO IV LR @150/hr CT a/p: Interval development of acute pancreatitis.2. The common bile duct stent appears in good position. No bile duct dilatation identified or evidence for choledocholithiasis.3. Prior cholecystectomy. 4. Mild thickening of the duodenum is likely reactive to the acute pancreatitis.5. No evidence for bowel obstruction. 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 Light, please see addendum A total of 59 minutes was spent coordinating, documenting, and providing care for this patient excluding time spent in the performance of separately billed services. This included personally viewing all current laboratories and imaging studies, medication reconciliation, outpatient chart review, and discussion with specialists. Patient requesting updates providers. Mr. Misael Palacios, contact #[phone]. (2) Post-ERCP acute pancreatitis: (3) Morbid obesity: Admission and Anticipated Discharge Date Admission Date: August 03, 2023 Supervising Physician Co-Signing Physician Notes Pt seen and examined by myself, Kayla Light MD on the day of service. Care was coordinated with Iman Underwood PA-C. Pt seen while sitting in chair at bedside. Stated that she just could not get comfortable. Noted that the oxycodone and morphine ordered was not helping. States she felt bloated with the abdominal pain. On exam, abdomen tender in epigastrium and RUQ. WBC elevated >12K today LFTs decreasing KUB, Lipase, CT abd/pelvis ordered Lipase and CT abd/pelvis confirming post-ERCP pancreatitis. Per ERCP report, pt received indomethacin 100mg via suppository to decrease risk. Made NPO and started on LR@150, consider echo for further cardiac evaluation with extended use of high rate fluids. Flagyl added to rocephin for empiric GI coverage in setting of elevated WBC Monitor symptoms and AM labs. Appreciate further GI recs. Otherwise as above. Subjective Patient was seen and examined in room 355. She is reporting significant abdominal bloating. Last BM was 4 days ago. Normally she goes every day. She denies f/c/s, chest pain, sob, vomiting or diarrhea. She is s/p ERCP yesterday. Bloating started this morning. It is not improving with simethicone or tylenol. Review of Systems Review of Systems: All systems reviewed & are unremarkable except as noted in HPI & below Physical Exam Physical Exam: Gen: WD/WN, NAD, A&O x3 HEENT: Normocephalic, atraumatic, conjunctivae moist, sclerae anicteric, mucous membranes moist. Lung: Clear to Auscultation bilaterally, no wheezes/rales/rhonchi Heart: Regular rate, regular rhythm, no murmurs, rubs, or gallops Abdomen: Obese abdomen, soft, tender to palpation diffusely, more so in epigastrium, no rebound, no guarding ND +BS x 4 Extremities: No edema Skin: Warm, no rash, negative turgor. Results & Data Results & Data Vital Signs (Past 12 Hours) Vital Signs Temp Pulse Pulse BP BP Pulse Ox O2 Del Method 08/05/23 11:44 37.1 C 75 119/76 95 Room Air 08/05/23 07:30 36.8 C 76 142/79 H 97 Room Air Laboratory Results Short CBC 08/05/23 Range/Units 07:20 WBC 12.85 H (4.8-10.8) K/ul Hgb 14.6 (12.0-16.0) g/dl Hct 43.6 (37.0-47.0) % Plt Count 279 (130-400) K/uL BMP 08/05/23 07:20 Sodium 137 Potassium 3.7 Chloride 105 Carbon Dioxide 26 BUN 7 Creatinine 0.52 L Glucose 109 H Calcium 8.8 Liver Function 08/05/23 Range/Units 07:20 Total Bilirubin 0.6 (0.2-1.0) mg/dl AST 115 H (13-39) U/L ALT 440 H (7-52) U/L Alkaline Phosphatase 98 (34-104) U/L Albumin 3.9 (3.4-5.0) gm/dl Medications Administered Current Inpatient Medications Cyclobenzaprine HCl (Cyclobenzaprine Hcl 10 Mg Tab) 10 mg PO TID PRN PRN Reason: muscle spasm Stop: 09/02/23 01:51 Hydromorphone HCl (Hydromorphone Inj 0.5 Mg/0.5 Ml Syr) 0.5 mg IV Q6H PRN PRN Reason: Severe Pain (Scale 7, 8, 9,10) Stop: 08/19/23 11:37 Promethazine HCl 12.5 mg/ (Sodium Chloride) 50.5 mls @ 202 mls/hr IV Q6H PRN PRN Reason: Nausea And Vomiting Stop: 09/02/23 00:27 Last Infusion: 08/05/23 12:12 Dose: Infused Ceftriaxone Sodium 2,000 mg/ (Dextrose) 50 mls @ 100 mls/hr IV Q24H [facility]; Protocol Stop: 08/13/23 18:59 Last Infusion: 08/04/23 20:34 Dose: Infused Metronidazole (Flagyl) 500 mg in 100 mls @ 100 mls/hr IV Q8H [facility]; Protocol Stop: 08/15/23 09:14 Last Infusion: 08/05/23 10:48 Dose: Infused Lactated Ringer's (Lr) 1,000 mls @ 150 mls/hr IV .Q6H40M [facility] Stop: 09/04/23 11:14 Last Admin: 08/05/23 11:24 Dose: 150 mls/hr Acetaminophen (Ofirmev) 1,000 mg in 100 mls @ 400 mls/hr IV Q8H PRN PRN Reason: Mild-Mod Pain (Scale 1-6) Stop: 08/08/23 11:06 Last Admin: 08/05/23 13:49 Dose: 400 mls/hr Lorazepam (Lorazepam 0.5 Mg Tab) 0.5 mg PO TID PRN PRN Reason: Anxiety Stop: 09/02/23 00:27 Multivitamins (Multivitamin Tab) 1 tab PO QAM [facility] Stop: 09/02/23 08:59 Last Admin: 08/05/23 08:39 Dose: 1 tab Nystatin (Nystatin Cr 15 Gm Tube) 1 appln EXT TID [facility] Stop: 08/13/23 08:59 Last Admin: 08/05/23 13:50 Dose: 1 appln Oxycodone HCl (Oxycodone Hcl Ir 5 Mg Tab (Immediate Release)) 5 - 10 mg PO QID PRN PRN Reason: Pain Stop: 08/17/23 00:27 Last Admin: 08/05/23 03:06 Dose: 5 mg Pantoprazole Sodium (Pantoprazole 40 Mg Tab) 40 mg PO QAM [facility] Stop: 09/02/23 08:59 Last Admin: 08/05/23 08:39 Dose: 40 mg Polyethylene Glycol (Polyethylene (Miralax) 17 Gm Pack) 17 gm PO DAILY [facility] Stop: 09/04/23 08:59 Last Admin: 08/05/23 09:40 Dose: 17 gm Simethicone (Simethicone 80 Mg Chew) 80 mg PO Q6H PRN PRN Reason: Flatulence Stop: 09/04/23 08:02 Last Admin: 08/05/23 08:40 Dose: 80 mg
[2023-08-05] MEDS: HYDROmorphone INJ 0.5 MG/0.5 ML SYR IV PRN (17:04)
[2023-08-05] MEDS ORDERED: ONDANSETRON INJ 2 MG/ML 2 ML VIAL IV PRN (17:11)
[2023-08-05] MEDS ORDERED: SODIUM CHLORIDE 0.9% 1,000 ML IV ONE (18:00)
[2023-08-05] MEDS ORDERED: SODIUM CHLORIDE 0.9% 1,000 ML IV SCH (19:00)
[2023-08-05] MEDS ORDERED: KETOROLAC 30 MG/ML VIAL IV ONE (19:47)
[2023-08-05] MEDS: POLYETHYLENE (MIRALAX) 17 GM PACK PO SCH (22:07)
[2023-08-05] MEDS: cefTRIAXone SODIUM 2,000 MG in DEXTROSE 5 % MINI-B 50 ML IV SCH (22:57)
[2023-08-06] MEDS: HYDROmorphone INJ 0.5 MG/0.5 ML SYR IV PRN ×2 (01:36→20:57)
[2023-08-06] MEDS: metroNIDAZOLE 500 MG/100 ML BAG IV SCH ×2 (01:36→09:08)
[2023-08-06] MEDS: ACETAMINOPHEN 1,000 MG/100 ML VIAL IV PRN ×2 (05:32→14:30)
[2023-08-06] MEDS: LACTATED RINGER'S 1,000 ML IV SCH ×4 (05:32→18:42)
[2023-08-06 07:21] LABS: Basophils # (auto) 0.06 K/uL (0.00-0.20); Basophils % (auto) 0.5 %; Eosinophils # (auto) 0.12 K/uL (0.00-0.50); Eosinophils % (auto) 0.9 %; Hematocrit (blood only) 37.2 % (37.0-47.0); Hemoglobin 12.7 g/dl (12.0-16.0); Immature Granulocytes # (auto) 0.04 K/uL (0.01-0.20); Immature Granulocytes % (auto) 0.3 %; Lymphocytes # (auto) 1.96 K/uL (1.20-3.40); Lymphocytes % (auto) 15.1 %; Mean Corpuscular Hemoglobin 29.9 pg (25.0-34.0); Mean Corpuscular Hgb Conc 34.1 g/dL (32.0-36.0); Mean Corpuscular Volume 87.5 fL (80.0-100.0); Mean Platelet Volume 9.4 fL (9.4-12.4); Monocytes # (auto) 0.78 K/uL (0.11-0.59); Neutrophils # (auto) 9.99 K/uL (1.40-6.50); Neutrophils % (auto) 77.2 %; Platelet Count 265 K/uL (130-400); RDW Coefficient of Variation 12.3 % (11.5-14.5); RDW Standard Deviation 39.5 fL (36.4-46.3); Red Blood Count 4.25 M/uL (4.20-5.40); White Blood Count 12.95 K/ul (4.8-10.8)
[2023-08-06 07:48] LABS: BUN Creatinine Ratio 11.4 (10-20); Calcium 8.3 mg/dl (8.6-10.3); Creatinine Clr Calc Pharmacy 185.8 ml/min; Est GFR (African American) 138.3 ml/min; Est GFR (Non-African American) 119.4 ml/min; Potassium 3.3 mmol/L (3.5-5.1)
[2023-08-06 08:10] LABS: Albumin Globulin Ratio 1.6 (0.9-2); Albumin Level 3.4 gm/dl (3.4-5.0); Bilirubin,Total 0.7 mg/dl (0.2-1.0); Globulin 2.1 gm/dl (2.5-4.0); Magnesium 1.9 mg/dl (1.7-2.4); Phosphorus 2.5 mg/dl (2.5-4.9); Total Protein 5.5 gm/dl (6.0-8.3)
[2023-08-06] MEDS: POLYETHYLENE (MIRALAX) 17 GM PACK PO SCH (09:08)
--- NOTE | 2023-08-06 09:08 | Gastroenterology Progress Note ---
Date of Service August 06, 2023 Assessment & Plan (1) Choledocholithiasis: Plan 47 year old female presenting with abd pain, nausea/vomiting, elevated transaminases and imaging concerning for a stone within the CBD and CBD dilation, concerning for choledocholithiasis. S/P ERCP w/ biliary sphincterotomy and balloon extraction, CBD stent placed Developed pain yesterday, lipase elevated and CT w/ mild acute pancreatitis May decrease LR to 150 mL/hr Please start DVT prophylaxis OOB to chair recommended Ambulation encouraged One dose of Reglan Clear liquid diet for lunch Miralax 1 capful twice daily Antiemetics PRN Analgesia PRN Repeat ERCP in 3 months for stent removal Thank you for allowing us to participate in the care of this patient. Please call with any acute changes, questions or concerns. Please see addendum below with additional recommendation from my supervising physician. Admission and Anticipated Discharge Date Admission Date: August 03, 2023 Supervising Physician Co-Signing Physician Notes Attg add: Post ERCP pancreatitis. Labs show only mild pancrreatitis, and on exam her abd is only mildly tender. She is not very hungry, and no BM. Will adv diet as tolerated, encourage ambulation and resp toilet. Further recs as above. Subjective Developed some pain and nausea yesterday. lipase elevated, CT with mild pancreatitis. LFTs continue to trend down. She was given a LR bolus and 200 mL/hr This AM, pain is slightly improved. No appetite yet. CTAP 2023: Interval development of acute pancreatitis.The common bile duct stent appears in good position. No bile duct dilatation identified or evidence for choledocholithiasis. Prior cholecystectomy. Mild thickening of the duodenum is likely reactive to the acute pancreatitis. Review of Systems Review of Systems: All systems reviewed & are unremarkable except as noted in HPI & below Physical Exam Constitutional: WD/WN, vitals as above Respiratory: normal respiratory effort, lungs clear to auscultation Cardiovascular: Rate/Rhythm: regular rate Gastrointestinal (Abdomen): Percussion/Palpation: + abdomen tender (midline w/ palpation) and abdomen soft; no guarding and abdomen not rigid Skin: no rashes, warm and dry Results & Data Vital Signs (Past 12 Hours) Vital Signs Temp Pulse Resp BP Pulse Ox O2 Del Method 08/06/23 07:38 37.2 C 83 16 109/68 92 Room Air Laboratory Results 08/06/23 08/05/23 08/05/23 Range/Units 06:34 07:20 07:20 WBC 12.95 H (4.8-10.8) K/ul RBC 4.25 (4.20-5.40) M/uL Hgb 12.7 (12.0-16.0) g/dl Hct 37.2 (37.0-47.0) % MCV 87.5 (80.0-100.0) fL MCH 29.9 (25.0-34.0) pg MCHC 34.1 (32.0-36.0) g/dL RDW Std Deviation 39.5 (36.4-46.3) fL RDW Coeff of Shonda 12.3 (11.5-14.5) % Plt Count 265 (130-400) K/uL MPV 9.4 (9.4-12.4) fL Immature Gran % (Auto) 0.3 % Neut % (Auto) 77.2 % Lymph % (Auto) 15.1 % [place] % (Auto) 6.0 % Eos % (Auto) 0.9 % Baso % (Auto) 0.5 % Neut # (Auto) 9.99 H (1.40-6.50) K/uL Lymph # (Auto) 1.96 (1.20-3.40) K/uL [place] # (Auto) 0.78 H (0.11-0.59) K/uL Eos # (Auto) 0.12 (0.00-0.50) K/uL Baso # (Auto) 0.06 (0.00-0.20) K/uL Immature Gran # (Auto) 0.04 (0.01-0.20) K/uL Sodium 138 (136-145) mmol/L Potassium 3.3 L (3.5-5.1) mmol/L Chloride 107 (98-107) mmol/L Carbon Dioxide 25 (21-32) mmol/L Anion Gap 6 (3-11) BUN 5 L (6-23) mg/dl Creatinine 0.44 L (0.6-1.2) mg/dl Est Cr Clr Drug Dosing 185.8 ml/min Est GFR ( Amer) 138.3 ml/min Est GFR (Non-Af Amer) 119.4 ml/min BUN/Creatinine Ratio 11.4 (10-20) Glucose 79 (70-99(Fasting)) mg/dl Calcium 8.3 L (8.6-10.3) mg/dl Phosphorus 2.5 (2.5-4.9) mg/dl Magnesium 1.9 (1.7-2.4) mg/dl Total Bilirubin 0.7 (0.2-1.0) mg/dl AST 40 H (13-39) U/L ALT 247 H (7-52) U/L Alkaline Phosphatase 79 (34-104) U/L Total Protein 5.5 L (6.0-8.3) gm/dl Albumin 3.4 (3.4-5.0) gm/dl Globulin 2.1 L (2.5-4.0) gm/dl Albumin/Globulin Ratio 1.6 (0.9-2) Lipase 946 H Cancelled 3432 H (11-82) U/L
[2023-08-06] MEDS: PANTOprazole 40 MG TAB PO SCH (09:09)
[2023-08-06] MEDS: MULTIVITAMIN TAB PO SCH (09:10)
[2023-08-06] MEDS: NYSTATIN CR 15 GM TUBE EXT SCH ×3 (09:10→20:58)
[2023-08-06] MEDS ORDERED: POTASSIUM CHLORIDE / WTR 10 MEQ/100 ML PLCT IV SCH (09:15)
[2023-08-06] MEDS ORDERED: METOCLOPRAMIDE HCL INJ 5 MG/ML 2 ML VIAL IV ONE (10:30)
[2023-08-06] MEDS: oxyCODONE HCL IR 5 MG TAB (IMMEDIATE RELEASE) PO PRN ×2 (10:38→18:44)
[2023-08-06] MEDS: ENOXAPARIN INJ 40 MG/0.4 ML SYR SQ SCH ×2 (10:41→20:58)
[2023-08-06] MEDS ORDERED: POTASSIUM CHLORIDE CRTAB 20 MEQ TABCR PO ONE (12:00)
[2023-08-06] MEDS: DOCUSATE SODIUM/SENNA 50/8.6MG TAB PO SCH ×2 (12:54→20:58)
--- NOTE | 2023-08-06 12:54 | Hospitalist Progress Note ---
Date of Service August 06, 2023 Assessment & Plan (1) Choledocholithiasis: (2) Post-ERCP acute pancreatitis: (3) Morbid obesity: Plan Pt is a 47oF with PMHx significant for GERD, NAFLD, gestational DM, PCOS, morbid obesity on admitted with choledocholithiasis. Choledocholithiasis Causing biliary tract obstruction, not currently septic WBC elevated on admission Liver enzymes elevated on admission: T bili 1.2 AST 347, ALT 313, alk phos wnl AST 115 >40 ; ALT 440;237 and down trending Pain control, antiemetics as needed, IVF ERCP on 08/04 Pt received 2 g of IV Mefoxin in the ED GI Consulted- appreciate recs D/C Antibiotics as no GI indication for antibiotics at this time POST ERCP PANCREATITIS diet advanced to clears, will see how she tolerates IV LR @150/hr CT a/p: Interval development of acute pancreatitis.2. The common bile duct stent appears in good position. No bile duct dilatation identified or evidence for choledocholithiasis.3. Prior cholecystectomy. 4. Mild thickening of the duodenum is likely reactive to the acute pancreatitis.5. No evidence for bowel obstruction. 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 Bernal, please see addendum A total of 45 minutes was spent coordinating, documenting, and providing care for this patient excluding time spent in the performance of separately billed services. This included personally viewing all current laboratories and imaging studies, medication reconciliation, outpatient chart review, and discussion with specialists. Admission and Anticipated Discharge Date Admission Date: August 03, 2023 Supervising Physician Co-Signing Physician Notes Pt seen and examined by me, care coordinated with Doe Underwood PA-C, pls refer to her note above for further detail. Pt is currently sitting up in chair in NAD. Has post ERCP pancreatitis, tolerating some liquid diet, cont. IVF. No fevers chills chest pain shortness of breath. Says she is not passing flatus, no BM. + Epigastric tenderness to palpation. GI following, cont. IVF, will review further recs. MD Gabe Subjective Patient was seen and examined in room 355. She still has not had a bowel movement. She has burping, but not passing flatus. She continues to have epigastric abdominal pain and bloating. She feels pain is improved from yesterday and is sitting up in the chair. She states that GI was in to see her and told her to sit in the chair more. Her diet was upgraded to clear liquids. She denies fever, chills, sweats, lightheadedness, dizziness, chest pain, shortness of breath, nausea or vomiting. Review of Systems Review of Systems: All systems reviewed & are unremarkable except as noted in HPI & below Physical Exam Physical Exam: Gen: WD/WN, NAD, A&O x3, sitting up in bedside chair HEENT: Normocephalic, atraumatic, conjunctivae moist, sclerae anicteric, mucous membranes moist. Lung: Clear to Auscultation bilaterally, no wheezes/rales/rhonchi Heart: Regular rate, regular rhythm, no murmurs, rubs, or gallops Abdomen: Obese abdomen, soft, mild tenderness to palpation in epigastrum, no rebound, no guarding ND +BS x 4 Extremities: No edema Skin: Warm, no rash, negative turgor. Results & Data Results & Data Vital Signs (Past 12 Hours) Vital Signs Temp Pulse Resp BP Pulse Ox O2 Del Method 08/06/23 07:38 37.2 C 83 16 109/68 92 Room Air Laboratory Results Short CBC 08/06/23 Range/Units 06:34 WBC 12.95 H (4.8-10.8) K/ul Hgb 12.7 (12.0-16.0) g/dl Hct 37.2 (37.0-47.0) % Plt Count 265 (130-400) K/uL BMP 08/06/23 06:34 Sodium 138 Potassium 3.3 L Chloride 107 Carbon Dioxide 25 BUN 5 L Creatinine 0.44 L Glucose 79 Calcium 8.3 L Liver Function 08/06/23 Range/Units 06:34 Total Bilirubin 0.7 (0.2-1.0) mg/dl AST 40 H (13-39) U/L ALT 247 H (7-52) U/L Alkaline Phosphatase 79 (34-104) U/L Albumin 3.4 (3.4-5.0) gm/dl Diagnostic Findings Abdomen/Pelvis CT 08/05/23 11:[address] WITH IV CONTRAST CT DOSE: 1468.73 mGy.cm HISTORY: Mid abdominal pain. pancreatitis TECHNIQUE: Multiaxial CT images of the abdomen and pelvis were performed following the use of intravenous contrast. A dose lowering technique was utilized adhering to the principles of ALARA. COMPARISON STUDY: Abdomen and pelvis CT 08/02/2023. FINDINGS: The lung bases are clear. No pneumoperitoneum. No pneumatosis. No acute fractures identified. Small fat-containing umbilical hernia. The liver, spleen, adrenal glands, and kidneys are unremarkable. No hydronephrosis. The main portal vein is patent. Prior cholecystectomy. Interval placement of a common bile duct stent which appears in good position. No evidence for residual common bile duct stone. No bile duct dilatation. Interval follow-up mild peripancreatic edema/inflammatory change consistent with acute pancreatitis. No evidence for pancreatic necrosis or peripancreatic fluid collections. Mild thickening of the adjacent duodenum is likely reactive. No retroperitoneal lymphadenopathy. Normal caliber abdominal aorta. No pelvic lymphadenopathy or pelvic free fluid. The bladder and ovaries are unremarkable. Prior hysterectomy. A few colonic diverticula. No evidence for acute diverticulitis. No evidence for bowel obstruction. Normal appendix. IMPRESSION: 1. Interval development of acute pancreatitis. 2. The common bile duct stent appears in good position. No bile duct dilatation identified or evidence for choledocholithiasis. 3. Prior cholecystectomy. 4. Mild thickening of the duodenum is likely reactive to the acute pancreatitis. 5. No evidence for bowel obstruction. ACT 112: Negative or not required by law. Electronically signed by: Oliver Garcia M.D. 08/05/2023 1:55 PM Medications Administered Current Inpatient Medications Cyclobenzaprine HCl (Cyclobenzaprine Hcl 10 Mg Tab) 10 mg PO TID PRN PRN Reason: muscle spasm Stop: 09/02/23 01:51 Enoxaparin Sodium (Enoxaparin Inj 40 Mg/0.4 Ml Syr) 40 mg SQ Q12 [facility] Stop: 09/05/23 09:44 Last Admin: 08/06/23 10:41 Dose: 40 mg Hydromorphone HCl (Hydromorphone Inj 0.5 Mg/0.5 Ml Syr) 0.5 mg IV Q6H PRN PRN Reason: Severe Pain (Scale 7, 8, 9,10) Stop: 08/19/23 11:37 Last Admin: 08/06/23 01:36 Dose: 0.5 mg Promethazine HCl 12.5 mg/ (Sodium Chloride) 50.5 mls @ 202 mls/hr IV Q6H PRN PRN Reason: Nausea And Vomiting Stop: 09/02/23 00:27 Last Infusion: 08/05/23 12:12 Dose: Infused Acetaminophen (Ofirmev) 1,000 mg in 100 mls @ 400 mls/hr IV Q8H PRN PRN Reason: Mild-Mod Pain (Scale 1-6) Stop: 08/08/23 11:06 Last Infusion: 08/06/23 05:52 Dose: Infused Lactated Ringer's (Lr) 1,000 mls @ 150 mls/hr IV .Q6H40M [facility] Stop: 09/04/23 19:59 Last Admin: 08/06/23 13:10 Dose: Not Given Lorazepam (Lorazepam 0.5 Mg Tab) 0.5 mg PO TID PRN PRN Reason: Anxiety Stop: 09/02/23 00:27 Multivitamins (Multivitamin Tab) 1 tab PO QAM [facility] Stop: 09/02/23 08:59 Last Admin: 08/06/23 09:10 Dose: 1 tab Nystatin (Nystatin Cr 15 Gm Tube) 1 appln EXT TID [facility] Stop: 08/13/23 08:59 Last Admin: 08/06/23 09:10 Dose: 1 appln Ondansetron HCl (Ondansetron Inj 2 Mg/Ml 2 Ml Vial) 4 mg IV Q6H PRN PRN Reason: Nausea And Vomiting Stop: 09/04/23 17:10 Last Admin: 08/05/23 17:21 Dose: 4 mg Oxycodone HCl (Oxycodone Hcl Ir 5 Mg Tab (Immediate Release)) 5 - 10 mg PO QID PRN PRN Reason: Pain Stop: 08/17/23 00:27 Last Admin: 08/06/23 10:38 Dose: 5 mg Pantoprazole Sodium (Pantoprazole 40 Mg Tab) 40 mg PO QAM [facility] Stop: 09/02/23 08:59 Last Admin: 08/06/23 09:09 Dose: 40 mg Polyethylene Glycol (Polyethylene (Miralax) 17 Gm Pack) 17 gm PO BID [facility] Stop: 09/04/23 20:59 Last Admin: 08/06/23 09:08 Dose: Not Given Senna/Docusate Sodium (Docusate Sodium/Senna 50/8.6mg Tab) 1 tab PO BID [facility] Stop: 09/05/23 11:59 Last Admin: 08/06/23 12:54 Dose: 1 tab Simethicone (Simethicone 80 Mg Chew) 80 mg PO Q6H PRN PRN Reason: Flatulence Stop: 09/04/23 08:02 Last Admin: 08/05/23 08:40 Dose: 80 mg
[2023-08-07] MEDS: LACTATED RINGER'S 1,000 ML IV SCH ×2 (00:38→07:27)
[2023-08-07] MEDS: ACETAMINOPHEN 1,000 MG/100 ML VIAL IV PRN (03:01)
[2023-08-07 07:04] LABS: Basophils # (auto) 0.09 K/uL (0.00-0.20); Basophils % (auto) 0.8 %; Eosinophils # (auto) 0.29 K/uL (0.00-0.50); Eosinophils % (auto) 2.6 %; Immature Granulocytes # (auto) 0.05 K/uL (0.01-0.20); Immature Granulocytes % (auto) 0.4 %; Lymphocytes # (auto) 3.05 K/uL (1.20-3.40); Lymphocytes % (auto) 27.2 %; Mean Corpuscular Hemoglobin 29.6 pg (25.0-34.0); Mean Corpuscular Hgb Conc 33.3 g/dL (32.0-36.0); Mean Corpuscular Volume 88.7 fL (80.0-100.0); Mean Platelet Volume 9.5 fL (9.4-12.4); Monocytes # (auto) 0.69 K/uL (0.11-0.59); Monocytes % (auto) 6.2 %; Neutrophils # (auto) 7.03 K/uL (1.40-6.50); Neutrophils % (auto) 62.8 %; Platelet Count 254 K/uL (130-400); RDW Coefficient of Variation 12.5 % (11.5-14.5); RDW Standard Deviation 40.9 fL (36.4-46.3); Red Blood Count 4.06 M/uL (4.20-5.40)
[2023-08-07 07:33] LABS: Albumin Globulin Ratio 1.5 (0.9-2); Albumin Level 3.2 gm/dl (3.4-5.0); BUN Creatinine Ratio 10.5 (10-20); Bilirubin,Total 0.6 mg/dl (0.2-1.0); Calcium 8.5 mg/dl (8.6-10.3); Creatinine Clr Calc Pharmacy 215.1 ml/min; Est GFR (African American) 145.2 ml/min; Est GFR (Non-African American) 125.3 ml/min; Globulin 2.2 gm/dl (2.5-4.0); Magnesium 1.7 mg/dl (1.7-2.4); Phosphorus 2.7 mg/dl (2.5-4.9); Potassium 3.3 mmol/L (3.5-5.1); Total Protein 5.4 gm/dl (6.0-8.3)
--- NOTE | 2023-08-07 07:54 | Hospitalist Progress Note ---
Date of Service August 07, 2023 Assessment & Plan (1) Choledocholithiasis: (2) Post-ERCP acute pancreatitis: (3) Morbid obesity: Plan Pt is a 47oF with PMHx significant for GERD, NAFLD, gestational DM, PCOS, morbid obesity on admitted with choledocholithiasis. Choledocholithiasis Causing biliary tract obstruction, not currently septic WBC elevated on admission Liver enzymes elevated on admission: T bili 1.2 AST 347, ALT 313, alk phos wnl AST 115 >40 ; ALT 440;237 and down trending Pain control, antiemetics as needed, IVF ERCP on 08/04 Pt received 2 g of IV Mefoxin in the ED GI Consulted- appreciate recs D/C Antibiotics as no GI indication for antibiotics at this time POST ERCP PANCREATITIS IV LR @150/hr CT a/p: Interval development of acute pancreatitis.2. The common bile duct stent appears in good position. No bile duct dilatation identified or evidence for choledocholithiasis.3. Prior cholecystectomy. 4. Mild thickening of the duodenum is likely reactive to the acute pancreatitis.5. No evidence for bowel obstruction. IV dilaudid prn severe pain, tylenol mild-mod pain Feeling better, pain improved, tolerating clear liquid diet -> advance to low fat diet. GI following. Constipation cont. bowel regimen resolved UTI - ruled out UA was suggestive of infection Urine cx negative received Antibiotics previously for GI coverage as above Situational hypertension BP currently improved Hyperglycemia Hx of Gestational DM Hgba1c wnl at 5.1 History GERD on PPI Intertrigo responding to outpatient topical nystatin Rx from digital sales director Morbid obesity BMI 45.6 encourage diet/lifestyle modifications On , encouraged pt to continue to hold for now DVT prophylaxis: Ambulate, lovenox Full code Admission and Anticipated Discharge Date Admission Date: August 03, 2023 Subjective Patient seen in follow up s/p ERCP pancreatitis Sitting up in bed, feeling better overall, abdominal pain improved. She did have a bowel movement. Seen by GI earlier today, diet advanced as she is tolerating clear liquids. She denies fever, chills, sweats, lightheadedness, dizziness, chest pain, shortness of breath, nausea or vomiting. Review of Systems Review of Systems: All systems reviewed & are unremarkable except as noted in Subjective Physical Exam Physical Exam: Gen: obese F in NAD HEENT: Normocephalic, atraumatic, conjunctivae moist, sclerae anicteric, mucous membranes moist. Lung: Clear to Auscultation bilaterally, no wheezes/rales/rhonchi Heart: Regular rate, regular rhythm, no murmurs, rubs, or gallops Abdomen: Obese abdomen, soft, mild tenderness to palpation in epigastrum, no rebound, no guarding ND +BS x 4 Extremities: No edema, moving extremities Skin: Warm, no rash, negative turgor Results & Data Results & Data Vital Signs (Past 12 Hours) Vital Signs Temp Pulse Pulse Resp BP Pulse Ox O2 Del Method 08/07/23 07:07 36.8 C 75 18 121/81 94 Room Air 08/06/23 22:15 81 18 97 08/06/23 21:15 36.8 C 81 16 108/70 95 Room Air FiO2 08/07/23 07:07 08/06/23 22:15 21 08/06/23 21:15 Laboratory Results 08/07/23 08/06/23 Range/Units 06:17 06:34 WBC 11.20 H (4.8-10.8) K/ul RBC 4.06 L (4.20-5.40) M/uL Hgb 12.0 (12.0-16.0) g/dl Hct 36.0 L (37.0-47.0) % MCV 88.7 (80.0-100.0) fL MCH 29.6 (25.0-34.0) pg MCHC 33.3 (32.0-36.0) g/dL RDW Std Deviation 40.9 (36.4-46.3) fL RDW Coeff of Shonda 12.5 (11.5-14.5) % Plt Count 254 (130-400) K/uL MPV 9.5 (9.4-12.4) fL Immature Gran % (Auto) 0.4 % Neut % (Auto) 62.8 % Lymph % (Auto) 27.2 % [place] % (Auto) 6.2 % Eos % (Auto) 2.6 % Baso % (Auto) 0.8 % Neut # (Auto) 7.03 H (1.40-6.50) K/uL Lymph # (Auto) 3.05 (1.20-3.40) K/uL [place] # (Auto) 0.69 H (0.11-0.59) K/uL Eos # (Auto) 0.29 (0.00-0.50) K/uL Baso # (Auto) 0.09 (0.00-0.20) K/uL Immature Gran # (Auto) 0.05 (0.01-0.20) K/uL Sodium 140 (136-145) mmol/L Potassium 3.3 L (3.5-5.1) mmol/L Chloride 107 (98-107) mmol/L Carbon Dioxide 27 (21-32) mmol/L Anion Gap 6 (3-11) BUN 4 L (6-23) mg/dl Creatinine 0.38 L (0.6-1.2) mg/dl Est Cr Clr Drug Dosing 215.1 ml/min Est GFR ( Amer) 145.2 ml/min Est GFR (Non-Af Amer) 125.3 ml/min BUN/Creatinine Ratio 10.5 (10-20) Glucose 78 (70-99(Fasting)) mg/dl Calcium 8.5 L (8.6-10.3) mg/dl Phosphorus 2.7 2.5 (2.5-4.9) mg/dl Magnesium 1.7 1.9 (1.7-2.4) mg/dl Total Bilirubin 0.6 0.7 (0.2-1.0) mg/dl AST 24 40 H (13-39) U/L ALT 165 H 247 H (7-52) U/L Alkaline Phosphatase 66 79 (34-104) U/L Total Protein 5.4 L 5.5 L (6.0-8.3) gm/dl Albumin 3.2 L 3.4 (3.4-5.0) gm/dl Globulin 2.2 L 2.1 L (2.5-4.0) gm/dl Albumin/Globulin Ratio 1.5 1.6 (0.9-2) Lipase 112 H 946 H (11-82) U/L Medications Administered Current Inpatient Medications Cyclobenzaprine HCl (Cyclobenzaprine Hcl 10 Mg Tab) 10 mg PO TID PRN PRN Reason: muscle spasm Stop: 09/02/23 01:51 Enoxaparin Sodium (Enoxaparin Inj 40 Mg/0.4 Ml Syr) 40 mg SQ Q12 [facility] Stop: 09/05/23 09:44 Last Admin: 08/06/23 20:58 Dose: 40 mg Hydromorphone HCl (Hydromorphone Inj 0.5 Mg/0.5 Ml Syr) 0.5 mg IV Q6H PRN PRN Reason: Severe Pain (Scale 7, 8, 9,10) Stop: 08/19/23 11:37 Last Admin: 08/06/23 20:57 Dose: 0.5 mg Promethazine HCl 12.5 mg/ (Sodium Chloride) 50.5 mls @ 202 mls/hr IV Q6H PRN PRN Reason: Nausea And Vomiting Stop: 09/02/23 00:27 Last Infusion: 08/05/23 12:12 Dose: Infused Acetaminophen (Ofirmev) 1,000 mg in 100 mls @ 400 mls/hr IV Q8H PRN PRN Reason: Mild-Mod Pain (Scale 1-6) Stop: 08/08/23 11:06 Last Infusion: 08/07/23 03:22 Dose: Infused Lactated Ringer's (Lr) 1,000 mls @ 150 mls/hr IV .Q6H40M [facility] Stop: 09/04/23 19:59 Last Admin: 08/07/23 07:27 Dose: 150 mls/hr Lorazepam (Lorazepam 0.5 Mg Tab) 0.5 mg PO TID PRN PRN Reason: Anxiety Stop: 09/02/23 00:27 Multivitamins (Multivitamin Tab) 1 tab PO QAM [facility] Stop: 09/02/23 08:59 Last Admin: 08/06/23 09:10 Dose: 1 tab Nystatin (Nystatin Cr 15 Gm Tube) 1 appln EXT TID [facility] Stop: 08/13/23 08:59 Last Admin: 08/06/23 20:58 Dose: 1 appln Ondansetron HCl (Ondansetron Inj 2 Mg/Ml 2 Ml Vial) 4 mg IV Q6H PRN PRN Reason: Nausea And Vomiting Stop: 09/04/23 17:10 Last Admin: 08/05/23 17:21 Dose: 4 mg Oxycodone HCl (Oxycodone Hcl Ir 5 Mg Tab (Immediate Release)) 5 - 10 mg PO QID PRN PRN Reason: Pain Stop: 08/17/23 00:27 Last Admin: 08/06/23 18:44 Dose: 5 mg Pantoprazole Sodium (Pantoprazole 40 Mg Tab) 40 mg PO QAM [facility] Stop: 09/02/23 08:59 Last Admin: 08/06/23 09:09 Dose: 40 mg Polyethylene Glycol (Polyethylene (Miralax) 17 Gm Pack) 17 gm PO BID [facility] Stop: 09/04/23 20:59 Last Admin: 08/06/23 09:08 Dose: Not Given Potassium Chloride (Potassium Chloride Pwd 20 Meq Pack) 20 meq PO BID [facility] Stop: 09/06/23 08:59 Senna/Docusate Sodium (Docusate Sodium/Senna 50/8.6mg Tab) 1 tab PO BID [facility] Stop: 09/05/23 11:59 Last Admin: 08/06/23 20:58 Dose: 1 tab Simethicone (Simethicone 80 Mg Chew) 80 mg PO Q6H PRN PRN Reason: Flatulence Stop: 09/04/23 08:02 Last Admin: 08/05/23 08:40 Dose: 80 mg
[2023-08-07] MEDS: NYSTATIN CR 15 GM TUBE EXT SCH (08:56)
[2023-08-07] MEDS: PANTOprazole 40 MG TAB PO SCH (08:57)
[2023-08-07] MEDS: MULTIVITAMIN TAB PO SCH (08:58)
[2023-08-07] MEDS: ENOXAPARIN INJ 40 MG/0.4 ML SYR SQ SCH (08:58)
[2023-08-07] MEDS: DOCUSATE SODIUM/SENNA 50/8.6MG TAB PO SCH (08:58)
[2023-08-07] MEDS ORDERED: POTASSIUM CHLORIDE PWD 20 MEQ PACK PO SCH (09:00)
--- NOTE | 2023-08-07 09:43 | Gastroenterology Progress Note ---
Date of Service August 07, 2023 Assessment & Plan (1) Choledocholithiasis: Plan 47 year old female presenting with abd pain, nausea/vomiting, elevated transaminases and imaging concerning for a stone within the CBD and CBD dilation, concerning for choledocholithiasis. S/P ERCP w/ biliary sphincterotomy and balloon extraction, CBD stent placed Developed pain Friday, lipase elevated and CT w/ mild acute pancreatitis Please start DVT prophylaxis OOB to chair recommended Ambulation encouraged Low fat diet for lunch Miralax 1 capful twice daily Antiemetics PRN Analgesia PRN Repeat ERCP in 3 months for stent removal Recall GI as needed. Thank you for allowing us to participate in the care of this patient. Please call with any acute changes, questions or concerns. Please see addendum below with additional recommendation from my supervising physician. Admission and Anticipated Discharge Date Admission Date: August 03, 2023 Supervising Physician Co-Signing Physician Notes Attg add: Symptoms resolved. NO abd pain, jimy PO, asking to be discharged. Plan as above. Subjective Starting to feel better Less pain Less bloating No nausea, vomiting Tolerating clears Would like to try a low fat diet Is on IV tylenol but suggests her last dose of narcotic analgesia was yesterday Review of Systems Review of Systems: All systems reviewed & are unremarkable except as noted in HPI & below Physical Exam Constitutional: WD/WN, vitals as above Respiratory: normal respiratory effort, lungs clear to auscultation Cardiovascular: Rate/Rhythm: regular rate and regular rhythm Gastrointestinal (Abdomen): Percussion/Palpation: + abdomen tender (mild upper abd pain w/ deep palpation ) and abdomen soft; no guarding and abdomen not rigid Skin: no rashes, warm and dry Results & Data Vital Signs (Past 12 Hours) Vital Signs Temp Pulse Pulse Resp BP Pulse Ox O2 Del Method 08/07/23 07:07 36.8 C 75 18 121/81 94 Room Air 08/06/23 22:15 81 18 97 FiO2 08/07/23 07:07 08/06/23 22:15 21 Laboratory Results 08/07/23 Range/Units 06:17 WBC 11.20 H (4.8-10.8) K/ul RBC 4.06 L (4.20-5.40) M/uL Hgb 12.0 (12.0-16.0) g/dl Hct 36.0 L (37.0-47.0) % MCV 88.7 (80.0-100.0) fL MCH 29.6 (25.0-34.0) pg MCHC 33.3 (32.0-36.0) g/dL RDW Std Deviation 40.9 (36.4-46.3) fL RDW Coeff of Shonda 12.5 (11.5-14.5) % Plt Count 254 (130-400) K/uL MPV 9.5 (9.4-12.4) fL Immature Gran % (Auto) 0.4 % Neut % (Auto) 62.8 % Lymph % (Auto) 27.2 % [place] % (Auto) 6.2 % Eos % (Auto) 2.6 % Baso % (Auto) 0.8 % Neut # (Auto) 7.03 H (1.40-6.50) K/uL Lymph # (Auto) 3.05 (1.20-3.40) K/uL [place] # (Auto) 0.69 H (0.11-0.59) K/uL Eos # (Auto) 0.29 (0.00-0.50) K/uL Baso # (Auto) 0.09 (0.00-0.20) K/uL Immature Gran # (Auto) 0.05 (0.01-0.20) K/uL Sodium 140 (136-145) mmol/L Potassium 3.3 L (3.5-5.1) mmol/L Chloride 107 (98-107) mmol/L Carbon Dioxide 27 (21-32) mmol/L Anion Gap 6 (3-11) BUN 4 L (6-23) mg/dl Creatinine 0.38 L (0.6-1.2) mg/dl Est Cr Clr Drug Dosing 215.1 ml/min Est GFR ( Amer) 145.2 ml/min Est GFR (Non-Af Amer) 125.3 ml/min BUN/Creatinine Ratio 10.5 (10-20) Glucose 78 (70-99(Fasting)) mg/dl Calcium 8.5 L (8.6-10.3) mg/dl Phosphorus 2.7 (2.5-4.9) mg/dl Magnesium 1.7 (1.7-2.4) mg/dl Total Bilirubin 0.6 (0.2-1.0) mg/dl AST 24 (13-39) U/L ALT 165 H (7-52) U/L Alkaline Phosphatase 66 (34-104) U/L Total Protein 5.4 L (6.0-8.3) gm/dl Albumin 3.2 L (3.4-5.0) gm/dl Globulin 2.2 L (2.5-4.0) gm/dl Albumin/Globulin Ratio 1.5 (0.9-2) Lipase 112 H (11-82) U/L
--- NOTE | 2023-08-07 13:32 | Discharge Summary ---
Date of Service August 07, 2023 Admission HPI Per Admitting Provider History obtained from patient, family, and records. Medical history significant for GERD, NAFLD, gestational DM, PCOS, morbid obesity on Wegovy. Patient experience achy epigastric pain after lunchtime today which p rogressively worsened. Later followed by bilious emesis. No constipation/diarrhea. No fever, no chills, no chest pain, no SOB. No headache. SBP 200s upon arrival at the ER. SBP currently 110s. IV cefoxitin administered at the ER. Medical History as above Topical nystatin recently prescribed by cloth finishing range tender for abdominal skin fold dermatitis following recent outpatient visit Surgical History : BTL, hysterectomy, section, cholecystectomy Family History : Breast cancer, DM, ovarian cancer Personal/Social history : Non-smoker, rare EtOH intake, [employer] employee Admission Exam Per Admitting Provider GENERAL: Comfortable, morbidly obese, no respiratory distress SKIN: Normal color, warm HEENT: Oto palpebral conjunctivae, no ptosis, dry buccal mucosa NECK : Supple, short neck, no tenderness CHEST : Decreased breath sounds, no tenderness HEART : RRR, no obvious murmurs ABDOMEN: Some distention, minimal epigastric tenderness EXTREMITIES : Minimal LE swelling, no LE tenderness, no other conspicuous deformities noted NEUROLOGIC : Coherent, no facial asymmetry, no other gross focality Principal Diagnosis Choledocholithiasis s/p ERCP, stent placement Post ERCP pancreatitis Discharge Exam Gen: obese F in NAD HEENT: Normocephalic, atraumatic, conjunctivae moist, sclerae anicteric, mucous membranes moist. Lung: Clear to Auscultation bilaterally, no wheezes/rales/rhonchi Heart: Regular rate, regular rhythm, no murmurs, rubs, or gallops Abdomen: Obese abdomen, soft, mild tenderness to palpation in epigastrum, no rebound, no guarding ND +BS x 4 Extremities: No edema, moving extremities Skin: Warm, no rash, negative turgor Discharge Data Allergies Allergy/AdvReac Type Severity Reaction Status Date / Time Sulfa (Sulfonamide Allergy Severe HIVES, Verified 07/30/23 08:21 Antibiotics) ITCHING, HEART RACES Penicillins Allergy Intermediate SEVERE Verified 07/30/23 08:21 HEADACHE AND FEVER sulfamethoxazole Allergy Mild rash Verified 07/30/23 08:21 [From Bactrim] trimethoprim [From Bactrim] Allergy Mild rash Verified 07/30/23 08:21 amoxicillin AdvReac Intermediate Headache Verified 07/30/23 08:21 Consultations 08/02/23 23:33 ED Decision to Admit Stat 08/03/23 01:52 Consult Gastroenterology Routine 08/03/23 15:26 Consult Gastroenterology Routine Procedures Performed Operation Date: 08/04/23 09:00 Actual Procedures p Endoscopic Retrograde Cholangiopancreato sphincterotomy and balloon swept and biliary stent placement - Mariela Maldonado MD Ordered Studies 08/02/23 20:51 CT abd pelvis IV con only Stat IMPRESSION: 1. Status post cholecystectomy with tiny stone in the distal aspect of the common bile duct with mild extrahepatic biliary distention. If indicated, this can be further assessed with MRCP/ERCP. Remainder of abdominal viscera are unremarkable. 2. No acute appendicitis or bowel obstruction. 08/04/23 [place] ERCP biliary ductal Routine Impression: - Choledocholithiasis was found. Complete removal was accomplished by biliary sphincterotomy and balloon extraction. - One plastic biliary stent was placed into the common bile duct. Recommendation: - [facility]. - Repeat ERCP in 3 months to remove stent. 08/05/23 11:27 CT abd pelvis IV con only Routine FINDINGS: The lung bases are clear. No pneumoperitoneum. No pneumatosis. No acute fractures identified. Small fat-containing umbilical hernia. The liver, spleen, adrenal glands, and kidneys are unremarkable. No hydronephrosis. The main portal vein is patent. Prior cholecystectomy. Interval placement of a common bile duct stent which appears in good position. No evidence for residual common bile duct stone. No bile duct dilatation. Interval follow-up mild peripancreatic edema/inflammatory change consistent with acute pancreatitis. No evidence for pancreatic necrosis or peripancreatic fluid collections. Mild thickening of the adjacent duodenum is likely reactive. No retroperitoneal lymphadenopathy. Normal caliber abdominal aorta. No pelvic lymphadenopathy or pelvic free fluid. The bladder and ovaries are unremarkable. Prior hysterectomy. A few colonic diverticula. No evidence for acute diverticulitis. No evidence for bowel obstruction. Normal appendix. IMPRESSION: 1. Interval development of acute pancreatitis. 2. The common bile duct stent appears in good position. No bile duct dilatation identified or evidence for choledocholithiasis. 3. Prior cholecystectomy. 4. Mild thickening of the duodenum is likely reactive to the acute pancreatitis. 5. No evidence for bowel obstruction. Hospital Course (1) Choledocholithiasis: (2) Post-ERCP acute pancreatitis: (3) Morbid obesity: Plan Pt is a 47oF with PMHx significant for GERD, NAFLD, gestational DM, PCOS, morbid obesity on Wegovy admitted with choledocholithiasis. Choledocholithiasis Causing biliary tract obstruction, not currently septic WBC elevated on admission Liver enzymes elevated on admission: T bili 1.2 AST 347, ALT 313, alk phos wnl AST 115 >40 ; ALT 440;237 and down trending Pain control, antiemetics as needed, IVF ERCP on 08/04 Pt received 2 g of IV Mefoxin in the ED GI Consulted- appreciate recs D/C Antibiotics as no GI indication for antibiotics at this time POST ERCP PANCREATITIS IV LR @150/hr CT a/p: Interval development of acute pancreatitis.2. The common bile duct stent appears in good position. No bile duct dilatation identified or evidence for choledocholithiasis.3. Prior cholecystectomy. 4. Mild thickening of the duodenum is likely reactive to the acute pancreatitis.5. No evidence for bowel obstruction. IV dilaudid prn severe pain, tylenol mild-mod pain Feeling better, pain improved, tolerating clear liquid diet -> advanced to low fat diet. GI following. Pt tolerating low fat diet and would like to be discharged. Plan for follow up with PCP and GI. Will need ERCP in 3 months for stent removal. Constipation cont. bowel regimen resolved UTI - ruled out UA was suggestive of infection Urine cx negative received Antibiotics previously for GI coverage as above Situational hypertension BP currently improved Hyperglycemia Hx of Gestational DM Hgba1c wnl at 5.1 History GERD on PPI Intertrigo responding to outpatient topical nystatin Rx from cloth finishing range tender Morbid obesity BMI 45.6 encourage diet/lifestyle modifications On , encouraged pt to continue to hold for now Total Time Total Time Spent Total Time Spent (In Minutes): 40 Discharge Plan Discharge Items Patient Disposition: Home - Self-Care Reason For Visit: BILIARY OBSTRUCTION Discharge Diagnosis: Choledocholithiasis s/p ERCP, stent placement Post ERCP pancreatitis Activity: Per Instructions section Non-emergency contact: Primary Care Provider and Dry Food Products Mixer Call non-emergency contact if: you have any medication questions and your symptoms worsen Follow-up/Referrals: Daniel Lima MD [Primary Care Provider] - (Date & Time 08/14/2023 11:20 AM Provider Daniel Lima MD [facility] ) Mariela Maldonado MD [Physician] - (The GI office contact you for a follow up appointment.) Diet: Low Fat Addtl Attending Provider Instructions: Follow up with your primary care doctor and compensation supervisor. Discuss with your primary care doctor if you should resume Wegovy. Repeat ERCP in 3 month to remove stent. Make sure to stay well hydrated. Pending Studies at Discharge: No Stand-Alone Forms: My [facility] GIDEEN, Smoking Cessation Medications and DC Order Prescriptions: Continued nystatin 100,000 unit/gram cream 1 applic topical TID Qty: 30 2RF Rx Instructions: use tid for 7-10 days to affected area omeprazole 20 mg capsule,delayed release(DR/EC) 20 mg PO QAM cyclobenzaprine 10 mg tablet 10 mg PO TID PRN (Reason: muscle spasm) Qty: 20 0RF multivitamin Tablet 1 tab PO QAM Hair, Skin and Nails Advanced 3.3 mg iron-25 mcg Tablet 1 tab PO QAM Discontinued Wegovy 2.4 mg/0.75 mL pen injector 2.4 mg SUBCUT WK Rx Instructions: SQ once a week. Pt takes every friday. Discharge Orders: Discharge Order (Routine); Ordered 08/07/23 Ordered By: Sumit Bernal Admission Data Admit Date/Time: 08/03/23 00:27 Attending Provider: Sumit Bernal Admit Provider: Gomez Ortega Primary Care Provider: Daniel Lima Other Providers: Kp Monae; Gomez Ortega; Ramiro Suárez; Kip Valentin; Stephie Briones; Kailee Biggs; Marian Beltran; Sharda Dominguez; Kayode Baker; Isaías Meek; Hilda Vásquez; Ramin Madden Alyssa; Mine Williamson; Nighat Solitario; Chelsea Ornelas; Mariela Maldonado; Levi Pacheco; Jose Thornton; Arely Lawson; Grace Valladares. Jr
== END 2023-08-07 14:02 | disposition home or self-care (01) | DRG 444 ==
LOC: ED 20:34 → 3W 08-03 00:27 → SUATTDRO 08-03 00:27 → 3W 08-03 01:29